=== PATIENT | female | born 1960 | race Caucasian/White ===

== ENCOUNTER 2017-06-01 17:23 | Emergency (ER) | payer BC ==
[~2017-06-01] VITALS: Ht 165.1 cm; Wt 54.4 kg
--- OUTSIDE RECORDS SUMMARY | ~2017-06-01 | XMS | Encounter Summary ---
Demographics + + + | Address | [address] | | | [place] [address] | + + + | Home Phone | | + + + | Preferred Language | Unknown | + + + | Marital Status | | + + + | Pentecostal Affiliation | Unknown | + + + | Race | Unknown | + + + | Ethnic Group | Unknown | + + + Author + + + | Author | [facility] | | | and [place] | + + + | Organization | [facility] | | | and [...] + + + + + | James Verdzuco | ECON | [address] | | | | | [place] [address] | | + + + + + | Josie Sparks | ECON | Unknown | | + + + + + Care Team Providers + +------+ + | Care Learning Center Coordinator Name | Role | Phone | + +------+ + | Antonio De Leon MD | PCP | | + +------+ + Reason for Visit +--------+ + | Reason | Comments | +--------+ + | Pain | | +--------+ + Encounter Details +--------+ + + + + | Date | Type | Department | Care Team | Description | +--------+ + + + + | 03/15/ | Clinical | [facility] | Max Dalton MD | Low back pain with | | 2018 | Support | [facility] | [address] | sciatica, sciatica | | | | CLINIC [address] | [place], [place] | laterality | | | | [address] [place] [place], | [address] | unspecified, | | | | [place] [address] | | unspecified back | | | | [phone] | | pain laterality, | | | | | | unspecified | | | | | | chronicity (Primary | | | | | | Dx) | +--------+ + + + + Social History + + [...] | | | + +---+---+---+ + + + | Sex Assigned at [...] | Max Dalton MD | | | 2017 | Visit | | [address] | | | | | | [place] | | | | | | [address] | | | | | | | | +--------+---------+ + + + as of this encounter Visit Diagnoses + + | Diagnosis | + + | Low back pain with sciatica, sciatica laterality unspecified, unspecified back pain | | laterality, unspecified chronicity - Primary | + + Administered Medications + +--------+ +-------+------+ + | Medication Order | MAR | Action | Dose | Rate | Site | | | Action | Date | | | | + +--------+ +-------+------+ + | ketorolac (TORADOL) injection | Given | | 60 mg | | Ventrogl | | 60 mg 60 mg, Intramuscular, | | 8 13:50 | | | uteal-Ri | | ONCE, 03/15/17 at 1415, For 1 | | PST | | | ght | | dose | | | | | | + +--------+ +-------+------+ + +---+---+ | | | +---+---+ in this encounter"
--- OUTSIDE RECORDS SUMMARY | ~2017-06-01 | XMS | Encounter Summary ---
Demographics + + + | Address | [address] | | | [place] [address] | + + + | Home Phone | | + + + | Preferred Language | Unknown | + + + | Marital Status | | + + + | Bahai Affiliation | Unknown | + + + | Race | Unknown | + + + | Ethnic Group | Unknown | + + + Author + + + | Author | [facility] | | | and [place]yeana | + + + | Organization | [facility] | | [...] + + + | James Verduzco | ECON | [address] | | | | | [place] [address] | | + + + + + | Josie Sparks | ECON | Unknown | | + + + + + Care Team Providers + +------+ + | Care Vice President Of Instruction Name | Role | Phone | + +------+ + | Antonio De Leon MD | PCP | | + +------+ + Reason for Visit + + + | Reason | Comments | + + + | Wound Check | | + + + Encounter Details +--------+ + + + + | Date | Type | Department | Care Team | Description | +--------+ + + + + | 03/28/ | Emergency | [facility] | Christofer Grant | Encounter for | | 2017 | | [facility] | [address] | post-traumatic wound | | | | CENTER [address] | [address] | check (Primary Dx) | | | | [place], [place] | [place] [address] | | | | | [address] | [phone] | | | | | [phone] | | | +--------+ + + + + Social [...] + + + as of this encounter Last Filed Vital Signs + + + + | Vital Sign | Reading | Time Taken | + + + + | Blood Pressure | 161/80 | 03/28/20171624 PST | + + + + | Pulse | 78 | 03/28/20171624 PST | + + + + | Temperature | 36.3 C (97.3 F) | 03/28/20171624 PST | + + + + | Respiratory Rate | 18 | 03/28/20171624 PST | + + + + | Oxygen Saturation | 100% | 03/28/20171624 PST | + + + + | Inhaled Oxygen | - | - | | Concentration | | | + + + + | Weight | 121 kg (266 lb 12.1 | 03/28/20171624 PST | | | oz) | | + + + + | Height | 165.1 cm (5' 5") | 03/28/20171624 PST | + + + + | Body Mass Index | 44.39 | 03/28/20171624 PST | + + + + in this encounter Discharge Instructions The following attachments cannot be sent through Care Everywhere.Wound Care (Citizen [place])in thi s encounter Medications at Time of Discharge + + +---------+---------+ + + | Medication | Sig. | Disp. | Refills | Start | End Date | | | | | | Date | | + + +---------+---------+ + + | albuterol (PROAIR | Inhale 2 puffs into | | | | | | HFA) 90 mcg/puff | the lungs every 6 | | | | | | inhaler | hours as needed for | | | | | | | Wheezing. | | | | | + + +---------+---------+ + + | amLODIPine | Take 10 mg by mouth | | | | | | (NORVASC) 10 MG | Daily. | | | | | | tablet | | | | | | + + +---------+---------+ + + | ascorbic acid | Take 1,000 mg by | | | | | | (VITAMIN C) 500 mg | mouth Daily. | | | | | | tablet | | | | | | + + +---------+---------+ + + | azelastine | 2 sprays by Nasal | | | | | | (ASTELIN) 0.1% nasal | route 2 times daily. | | | | | | spray | Use in each nostril | | | | | | | as directed. | | | | | + + +---------+---------+ + + | busPIRone (BUSPAR) | | | 1 | 02/17/20 | | | 10 MG tablet | | | | 17 | | + + +---------+---------+ + + | calcium-vitamin D | Take 3 tablets by | | | | | | (OSCAL) 500 mg-200 | mouth Daily. | | | | | | units per tablet | | | | | | + + +---------+---------+ + + | Cetirizine HCl | Take by mouth. | | | 08/11/19 | | | (ZYRTEC ALLERGY) 10 | | | | 15 | | | MG liqui-gel | | | | | | + + +---------+---------+ + + | cholecalciferol | Take by mouth. | | | 06/09/19 | | | (VITAMIN D-3) 1,000 | | | | 16 | | | units capsule | | | | | | + + +---------+---------+ + + | cloNIDine | Take by mouth. | | | 08/11/19 | | | (CATAPRES) 0.3 MG | | | | 15 | | | tablet | | | | | | + + +---------+---------+ + + | cyanocobalamin | Take 500 mcg by | | | | | | (VITAMIN B-12) 500 | mouth Daily. | | | | | | mcg tablet | | | | | | + + +---------+---------+ + + | EPINEPHrine | Injection; Use as | | | 08/11/19 | | | auto-injector | directed. | | | 15 | | | (EPIPEN 2-LA) 0.3 | | | | | | | mg/0.3 mL injection | | | | | | + + +---------+---------+ + + | ergocalciferol | Take 50,000 Units by | | | | | | (VITAMIN D-2) 50,000 | mouth 2 times | | | | | | units capsule | daily. | | | | | + + +---------+---------+ + + | ferrous sulfate | Take 325 mg by mouth | | | | | | 325 mg tablet | 2 times daily (with | | | | | | | breakfast & | | | | | | | dinner). | | | | | + + +---------+---------+ + + | fexofenadine | Take 180 mg by mouth | | | | | | (JUDAH ALLERGY) | as needed. | | | | | | 180 mg tablet | | | | | | + + +---------+---------+ + + | | Take by mouth. | | | 08/17/19 | | | fluticasone-salmeter | | | | 15 | | | ol (ADVAIR DISKUS) | | | | | | | 100-50 mcg/puff | | | | | | | diskus inhaler | | | | | | + + +---------+---------+ + + | | Inhale 2 puffs into | | | | | | fluticasone-salmeter | the lungs 2 times | | | | | | ol (ADVAIR HFA) | daily. | | | | | | 230-21 MCG/ACT | | | | | | | inhaler | | | | | | + + +---------+---------+ + + | gabapentin | Take 600 mg by mouth | | | | | | (NEURONTIN) 600 MG | 3 times daily. | | | | | | tablet | | | | | | + + +---------+---------+ + + | | Take 25 mg by mouth | | | | | | hydrochlorothiazide | Daily. | | | | | | 25 mg tablet | | | | | | + + +---------+---------+ + + | lansoprazole | Take 15 mg by mouth | | | | | | (PREVACID) [address] | Daily. | | | | | | capsule | | | | | | + + +---------+---------+ + + | lisinopril | Take 40 mg by mouth | | | | | | (PRINIVIL, ZESTRIL) | Daily. | | | | | | 20 mg tablet | | | | | | + + +---------+---------+ + + | lovastatin | Take 20 mg by mouth | | | | | | (MEVACOR) 20 mg | nightly. | | | | | | tablet | | | | | | + + +---------+---------+ + + | magnesium oxide | Take 400 mg by mouth | | | | | | (MAG-OX) 400 mg | Daily. | | | | | | tablet | | | | | | + + +---------+---------+ + + | montelukast | Take 10 mg by mouth | | | | | | (SINGULAIR) 10 mg | nightly. | | | | | | tablet | | | | | | + + +---------+---------+ + + | naratriptan | Take by mouth. | | | 11/07/19 | | | (AMERGE) 2.5 mg | | | | 17 | | | tablet | | | | | | + + +---------+---------+ + + | ondansetron | | | 3 | 01/24/20 | | | (ZOFRAN ODT) 4 mg | | | | 17 | | | disintegrating | | | | | | | tablet | | | | | | + + +---------+---------+ + + | oxyCODONE | Take 15 mg by mouth | | | | | | (ROXICODONE) 15 mg | every 8 hours as | | | | | | immediate release | needed. | | | | | | tablet | | | | | | + + +---------+---------+ + + | Poloxamer-Xylitol | | | 0 | //20 | | | (PCCA LOXASPERSE | | | | 17 | | | BASE) POWD | | | | | | + + +---------+---------+ + + | Probiotic Product | Take 2 capsules by | | | | | | (PROBIOTIC-10) CAPS | mouth. | | | | | + + +---------+---------+ + + | spironolactone | | | 3 | 12/30/20 | | | (ALDACTONE) 25 mg | | | | 17 | | | tablet | | | | | | + + +---------+---------+ + + | venlafaxine | Take by mouth. | | | 03/16/19 | | | (EFFEXOR XR) 75 mg | | | | 16 | | | 24 hr capsule | | | | | | + + +---------+---------+ + + | | Take 1 capsule by | 112 | 0 | 03/25/19 | | | butalbital-acetamino | mouth 4 times daily | capsule | | 18 | 8 | | phen-caffeine | as needed for | | | | | | (FIORICET) 50-300-40 | Headaches. | | | | | | mg per | | | | | | | capsuleIndications: | | | | | | | Migraine without | | | | | | | aura and without | | | | | | | status migrainosus, | | | | | | | not intractable | | | | | | + + +---------+---------+ + + | carisoprodol | Take 1 tablet by | 90 | 0 | 03/19/19 | | | (SOMA) 350 mg | mouth 3 times daily | tablet | | 18 | 8 | | tabletIndications: | as needed for Muscle | | | | | | Chronic bilateral | spasms. | | | | | | low back pain | | | | | | | without sciatica, | | | | | | | Strain of neck | | | | | | | muscle, subsequent | | | | | | | encounter | | | | | | + + +---------+---------+ + + | ketorolac | TAKE 1 TABLET BY | 30 | 2 | 03/19/19 | | | (TORADOL) 10 MG | MOUTH THREE TIMES | tablet | | 18 | 8 | | tabletIndications: | DAILY NEEDED FOR | | | | | | Chronic pain | PAIN | | | | | | syndrome | | | | | | + + +---------+---------+ + + | rizatriptan | DISSOLVE 1 TABLET BY | 12 | 1 | 01/19/20 | | | (MAXALT-CHARGE ENTRY SPECIALIST) 10 mg | MOUTH AT ONSET OF | tablet | | 17 | 8 | | disintegrating | HEADACHE AND CAN | | | | | | tablet | REPEAT IN 45 | | | | | | | MINUTES; UP TO 2 PER | | | | | | | DAY. | | | | | + + +---------+---------+ + + as of this encounter Plan of Treatment +--------+---------+ + + + | Date | Type | Specialty | Care Team | Description | +--------+---------+ + + + | 09/02/ | Office | Neurology | Max Dalton MD | | | 2018 | Visit | | [address] | | | | | | [place] | | | | | | [address] | | | | | | | | +--------+---------+ + + + + +--------+ + + | Name | Priori | Associated Diagnoses | Date/Time | | | ty | | | + +--------+ + + | ED INFORMATION EXCHANGE | Routin | | 03/28/2017 1619 PST | | | e | | | + +--------+ + + as of this encounter Visit Diagnoses + + | Diagnosis | + + | Encounter for post-traumatic wound check - Primary | + + | Encounter for other specified aftercare | + + Administered Medications + +--------+ + +------+------+ | Medication Order | MAR | Action | Dose | Rate | Site | | | Action | Date | | | | + +--------+ + +------+------+ | bacitracin topical ointment | Given | 03/28/2017 | 1 | | | | Topical, ONCE, [facility] 03/28/17 at | | 17:36 | Applicat | | | | 1745, For 1 dose | | PST | ion | | | + +--------+ + +------+------+ +---+---+ | | | +---+---+ in this encounter
--- OUTSIDE RECORDS SUMMARY | ~2017-06-01 | XMS | Clinical Summary ---
Demographics + + + | Address | [address] | | | [place] [address] | + + + | Home Phone | | + + + | Preferred Language | Unknown | + + + | Marital Status | | + + + | Sikhism Affiliation | Unknown | + + + | Race | Unknown | + + + | Ethnic Group | Unknown | + + + Author + + + | Author | [facility] | | | and [place] | + + + | Organization | [facility] | | | and [...] | James Verduzco | SUSAN | [address] | | | | | [place] [address] | | + + + + + | Josie Sparks | SUSAN | Unknown | | + + + + + Care Team Providers + +------+ + | Care Fire Control Officer Name | Role | Phone | + +------+ + | Antonio De Leon MD | PP | | + +------+ + Allergies + + + + + + | Active Allergy | Reactions | Severity | Noted | Comments | | | | | Date | | + + + + + + | Ciprofloxacin | Other (See Comments) | | 01/16/20 | Severe muscle | | | | | 12 | spasms | + + + + + + | Clarithromycin | | | | Other reaction(s): | | | | | | | | | | | | Shock/Unconsciousnes | | | | | | s | + + + + + + | Codeine | Rash | Low | 01/16/20 | | | | | | 12 | | + + + + + + | Morphine | Rash | Low | 01/16/20 | | | | | | 12 | | + + + + + + | Povidone Iodine | | | 01/15/ | | | | | | 12 | | + + + + + + Current Medications + + +---------+---------+------+------+-------+ | Prescription | Sig. | Disp. | Refills | Star | End | Statu | | | | | | t | Date | s | | | | | | Date | | | + + +---------+---------+------+------+-------+ | | Take 25 mg by mouth | | | | | Activ | | hydrochlorothiazide | Daily. | | | | | e | | 25 mg tablet | | | | | | | + + +---------+---------+------+------+-------+ | fexofenadine | Take 180 mg by mouth | | | | | Activ | | (JUDAH ALLERGY) | as needed. | | | | | e | | 180 mg tablet | | | | | | | + + +---------+---------+------+------+-------+ | oxyCODONE | Take 15 mg by mouth | | | | | Activ | | (ROXICODONE) 15 mg | every 8 hours as | | | | | e | | immediate release | needed. | | | | | | | tablet | | | | | | | + + +---------+---------+------+------+-------+ | lansoprazole | Take 15 mg by mouth | | | | | Activ | | (PREVACID) [address] | Daily. | | | | | e | | capsule | | | | | | | + + +---------+---------+------+------+-------+ | montelukast | Take 10 mg by mouth | | | | | Activ | | (SINGULAIR) 10 mg | nightly. | | | | | e | | tablet | | | | | | | + + +---------+---------+------+------+-------+ | spironolactone | | | 3 | 12/3 | | Activ | | (ALDACTONE) 25 mg | | | | 0/20 | | e | | tablet | | | | 17 | | | + + +---------+---------+------+------+-------+ | Cetirizine HCl | Take by mouth. | | | 06/2 | | Activ | | (ZYRTEC ALLERGY) 10 | | | | 3/20 | | e | | MG liqui-gel | | | | 15 | | | + + +---------+---------+------+------+-------+ | albuterol (PROAIR | Inhale 2 puffs into | | | | | Activ | | HFA) 90 mcg/puff | the lungs every 6 | | | | | e | | inhaler | hours as needed for | | | | | | | | Wheezing. | | | | | | + + +---------+---------+------+------+-------+ | | Inhale 2 puffs into | | | | | Activ | | fluticasone-salmeter | the lungs 2 times | | | | | e | | ol (ADVAIR HFA) | daily. | | | | | | | 230-21 MCG/ACT | | | | | | | | inhaler | | | | | | | + + +---------+---------+------+------+-------+ | lisinopril | Take 40 mg by mouth | | | | | Activ | | (PRINIVIL, ZESTRIL) | Daily. | | | | | e | | 20 mg tablet | | | | | | | + + +---------+---------+------+------+-------+ | amLODIPine | Take 10 mg by mouth | | | | | Activ | | (NORVASC) 10 MG | Daily. | | | | | e | | tablet | | | | | | | + + +---------+---------+------+------+-------+ | gabapentin | Take 600 mg by mouth | | | | | Activ | | (NEURONTIN) 600 MG | 3 times daily. | | | | | e | | tablet | | | | | | | + + +---------+---------+------+------+-------+ | azelastine | 2 sprays by Nasal | | | | | Activ | | (ASTELIN) 0.1% nasal | route 2 times daily. | | | | | e | | spray | Use in each nostril | | | | | | | | as directed. | | | | | | + + +---------+---------+------+------+-------+ | ferrous sulfate | Take 325 mg by mouth | | | | | Activ | | 325 mg tablet | 2 times daily (with | | | | | e | | | breakfast & | | | | | | | | dinner). | | | | | | + + +---------+---------+------+------+-------+ | ergocalciferol | Take 50,000 Units by | | | | | Activ | | (VITAMIN D-2) 50,000 | mouth 2 times | | | | | e | | units capsule | daily. | | | | | | + + +---------+---------+------+------+-------+ | calcium-vitamin D | Take 3 tablets by | | | | | Activ | | (OSCAL) 500 mg-200 | mouth Daily. | | | | | e | | units per tablet | | | | | | | + + +---------+---------+------+------+-------+ | cyanocobalamin | Take 500 mcg by | | | | | Activ | | (VITAMIN B-12) 500 | mouth Daily. | | | | | e | | mcg tablet | | | | | | | + + +---------+---------+------+------+-------+ | magnesium oxide | Take 400 mg by mouth | | | | | Activ | | (MAG-OX) 400 mg | Daily. | | | | | e | | tablet | | | | | | | + + +---------+---------+------+------+-------+ | Probiotic Product | Take 2 capsules by | | | | | Activ | | (PROBIOTIC-10) CAPS | mouth. | | | | | e | + + +---------+---------+------+------+-------+ | lovastatin | Take 20 mg by mouth | | | | | Activ | | (MEVACOR) 20 mg | nightly. | | | | | e | | tablet | | | | | | | + + +---------+---------+------+------+-------+ | ascorbic acid | Take 1,000 mg by | | | | | Activ | | (VITAMIN C) 500 mg | mouth Daily. | | | | | e | | tablet | | | | | | | + + +---------+---------+------+------+-------+ | EPINEPHrine | Injection; Use as | | | 06/2 | | Activ | | auto-injector | directed. | | | 3/20 | | e | | (EPIPEN 2-LA) 0.3 | | | | 15 | | | | mg/0.3 mL injection | | | | | | | + + +---------+---------+------+------+-------+ | ondansetron | | | 3 | 12/0 | | Activ | | (ZOFRAN ODT) 4 mg | | | | 6 | | e | | disintegrating | | | | 17 | | | | tablet | | | | | | | + + +---------+---------+------+------+-------+ | Poloxamer-Xylitol | | | 0 | 12/20 | | Activ | | (PCCA LOXASPERSE | | | | 03/09 | | e | | BASE) ZACHARY | | | | 17 | | | + + +---------+---------+------+------+-------+ | | Take by mouth. | | | 07/20 | | Activ | | fluticasone-salmeter | | | | 11/07 | | e | | ol (ADVAIR DISKUS) | | | | 15 | | | | 100-50 mcg/puff | | | | | | | | diskus inhaler | | | | | | | + + +---------+---------+------+------+-------+ | busPIRone (BUSPAR) | | | 1 | 12/3 | | Activ | | 10 MG tablet | | | | 0/20 | | e | | | | | | 17 | | | + + +---------+---------+------+------+-------+ | cloNIDine | Take by mouth. | | | 07/20 | | Activ | | (CATAPRES) 0.3 MG | | | | 3/20 | | e | | tablet | | | | 15 | | | + + +---------+---------+------+------+-------+ | venlafaxine | Take by mouth. | | | 02/19 | | Activ | | (EFFEXOR XR) 75 mg | | | | 7/20 | | e | | 24 hr capsule | | | | 16 | | | + + +---------+---------+------+------+-------+ | naratriptan | Take by mouth. | | | 10/19 | | Activ | | (AMERGE) 2.5 mg | | | | 20 | | e | | tablet | | | | 17 | | | + + +---------+---------+------+------+-------+ | cholecalciferol | Take by mouth. | | | 05/20 | | Activ | | (VITAMIN D-3) 1,000 | | | | 20 | | e | | units capsule | | | | 16 | | | + + +---------+---------+------+------+-------+ | rizatriptan | Take 1 tablet by | 12 | 3 | 02/2 | | Activ | | (MAXALT-METAL INSPECTOR) 10 mg | mouth as needed for | tablet | | 20 | | e | | disintegrating | Migraine. May repeat | | | 18 | | | | tabletIndications: | in 2 hours if | | | | | | | Migraine without | needed | | | | | | | aura and without | | | | | | | | status migrainosus, | | | | | | | | not intractable | | | | | | | + + +---------+---------+------+------+-------+ | gabapentin | Take 3 capsules by | 180 | 1 | 02/2 | | Activ | | (NEURONTIN) 100 mg | mouth 2 times daily. | capsule | | 10/07 | | e | | capsuleIndications: | Increase current | | | 18 | | | | Neuropathy | dose slowly by 100 | | | | | | | | mg every 7 days | | | | | | | | until taking a total | | | | | | | | of 2400 mg daily | | | | | | + + +---------+---------+------+------+-------+ | ketorolac | TAKE 1 TABLET BY | 30 | 2 | 03/1 | | Activ | | (TORADOL) 10 MG | MOUTH THREE TIMES | tablet | | 3/20 | | e | | tabletIndications: | DAILY NEEDED FOR | | | 18 | | | | Chronic pain | PAIN | | | | | | | syndrome | | | | | | | + + +---------+---------+------+------+-------+ | | Take 1 capsule by | 112 | 0 | 04/0 | 04/3 | Activ | | butalbital-acetamino | mouth 4 times daily | capsule | | 2/20 | 0/20 | e | | phen-caffeine | as needed for | | | 18 | 18 | | | (FIORICET) 50-300-40 | Headaches for up to | | | | | | | mg per | 28 days. | | | | | | | capsuleIndications: | | | | | | | | Migraine without | | | | | | | | aura and without | | | | | | | | status migrainosus, | | | | | | | | not intractable | | | | | | | + + +---------+---------+------+------+-------+ | carisoprodol | Take 1 tablet by | 84 | 0 | 02/2 | 03/2 | Expir | | (SOMA) 350 mg | mouth 3 times daily | tablet | | 10/07 | 8 | ed | | tabletIndications: | as needed for Muscle | | | 18 | 18 | | | Chronic bilateral | spasms for up to 28 | | | | | | | low back pain | days. | | | | | | | without sciatica, | | | | | | | | Strain of neck | | | | | | | | muscle, subsequent | | | | | | | | encounter | | | | | | | + + +---------+---------+------+------+-------+ | | Take 1 capsule by | 112 | 0 | 03/0 | 03/3 | Disco | | butalbital-acetamino | mouth 4 times daily | capsule | | 5/20 | 0/20 | ntinu | | phen-caffeine | as needed for | | | 18 | 18 | ed | | (FIORICET) 50-300-40 | Headaches for up to | | | | | | | mg per | 28 days. | | | | | | | capsuleIndications: | | | | | | | | Migraine without | | | | | | | | aura and without | | | | | | | | status migrainosus, | | | | | | | | not intractable | | | | | | | + + +---------+---------+------+------+-------+ Active Problems + + + | Problem | Noted Date | + + + | Migraine without aura and without status migrainosus, not | 03/25/2017 | | intractable | | + + + | Carpal tunnel syndrome | 08/03/2016 | + + + | Cervical strain | 08/03/2016 | + + + | Strain of thoracic region | 08/03/2016 | + + + | Asthma | 06/09/2015 | + + + | Chronic pain | 06/09/2015 | + + + | Gastroesophageal reflux disease | 06/09/2015 | + + + | Idiopathic avascular necrosis | 06/09/2015 | + + + | Osteoarthrosis | 06/09/2015 | + + + | Osteopenia | 06/09/2015 | + + + | Postmenopausal | 06/09/2015 | + + + | Hypertension | 03/16/2015 | + + + | Low back pain | 01/16/2012 | + + + | Right lumbar radiculitis - appears to affect the right L5 nerve | 01/16/2012 | | root | | + + + | Right knee pain - the patient has a history of several surgeries | 01/16/2012 | | on the knee and prior ACL/PCL tears | | + + + | Sacroiliitis - currently worse on the left but present | 01/16/2012 | | bilaterally | | + + + Encounters +--------+ + + + + | Date | Type | Specialty | Care Team | Description | +--------+ + + + + | 05/17/ | Refill | | French Daly | Medication Refill | | 2017 | | | RICHARD Johnson | | +--------+ + + + + | 05/07/ | Telephone | | French Daly | Other (please advise | | 2017 | | | RICHARD Johnson | ) | +--------+ + + + + | 04/30/ | Refill | | Max Dalton MD | Medication Refill | | 2017 | | | | | +--------+ + + + + | 04/22/ | Refill | | Max Dalton MD | Medication Refill | | 2017 | | | | | +--------+ + + + + | 04/17/ | Office | | French Daly | Neuropathy (Primary | | 2018 | Visit | | RICHARD Johnson | Dx); Right lumbar | | | | | | radiculitis - | | | | | | appears to affect | | | | | | the right L5 nerve | | | | | | root; Chronic | | | | | | bilateral low back | | | | | | pain without | | | | | | sciatica; Migraine | | | | | | without aura and | | | | | | without status | | | | | | migrainosus, not | | | | | | intractable; Strain | | | | | | of thoracic region, | | | | | | subsequent | | | | | | encounter; Strain of | | | | | | neck muscle, | | | | | | subsequent | | | | | | encounter; Chronic | | | | | | pain syndrome | +--------+ + + + + | 04/12/ | Telephone | | French Daly | Medication Related | | 2017 | | | RICHARD Johnson | | +--------+ + + + + | 04/09/ | Refill | | French Daly | Medication Refill | | 2017 | | | RICHARD Johnson | (refill request) | +--------+ + + + + | 03/28/ | Emergency | | Christofer Grant | Encounter for | | 2017 | | | MD Geovani | post-traumatic wound | | | | | | check (Primary Dx) | +--------+ + + + + | 03/28/ | Procedure | | Max Dalton MD | Bilateral carpal | | 2017 | visit | | | tunnel syndrome | | | | | | (Primary Dx) | +--------+ + + + + | 03/25/ | Emergency | | Meghan Gutierrez, | 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 finger | | | | | | without foreign body | | | | | | without damage to | | | | | | nail, initial | | | | | | encounter (Primary | | | | | | Dx) | +--------+ + + + + | 03/25/ | Refill | | French Daly | Medication Refill | | 2017 | | | RICHARD Johnson | | +--------+ + + + + | 03/19/ | Office | | French Daly | Chronic bilateral | | 2018 | Visit | | RICHARD Johnson | low back pain | | | | | | without sciatica | | | | | | (Primary Dx); Right | | | | | | lumbar radiculitis - | | | | | | appears to affect | | | | | | the right L5 nerve | | | | | | root; Chronic | | | | | | migraine; Strain of | | | | | | neck muscle, | | | | | | subsequent | | | | | | encounter; Chronic | | | | | | pain syndrome | +--------+ + + + + | 03/19/ | Refill | | French Daly | Medication Refill | | 2017 | | | RICHARD Johnson | (refill request) | +--------+ + + + + | 03/19/ | Telephone | | French Daly | Other (please | 2017 | | | RICHARD Johnson | advise) | +--------+ + + + + | 03/19/ | Telephone | | French Daly | Other (Please | 2017 | | | RICHARD Johnson | Advise) | +--------+ + + + 03/15/ | Clinical | | Max Dalton MD | Low back pain with | 2017 | Support | | | sciatica, sciatica | | | | | | laterality | | | | | | unspecified, | | | | | | unspecified back | | | | | | pain laterality, | | | | | | unspecified | | | | | | chronicity (Primary | | | | | | Dx) | +--------+ + + + + | 03/15/ | Telephone | | French Daly | Other (Toradol Inj) | | 2017 | | | RICHARD Johnson | | +--------+ + + + + | 03/15/ | Telephone | | Max Dalton MD | Medication | | 2017 | | | | Management (toradol | | | | | | shot) | +--------+ + + + + from Last 3 Months Family History + + +------+ + | Medical History | Relation | Name | Comments | + + +------+ + | Other (see comment) | Father | | | + + +------+ + | Dementia | Mother | | | + + +------+ + | Other (see comment) | Mother | | | + + +------+ + + +------+ + + | Relation | Name | Status | Comments | + +------+ + + | Father | | | | + +------+ + + | Mother | | | | + +------+ + + Social History + + + [...] on file | | + + + Last Filed Vital Signs + + + + | Vital Sign | Reading | Time Taken | + + + + | Blood Pressure | 138/88 | 04/17/20171622 PST | + + + + | Pulse | 87 | 04/17/20171622 PST | + + + + | Temperature | 36.3 C (97.3 F) | 03/28/20171624 PST | + + + + | Respiratory Rate | 18 | 04/17/20171622 PST | + + + + | Oxygen Saturation | 96% | 04/17/20171622 PST | + + + + | Inhaled Oxygen | - | - | | Concentration | | | + + + + | Weight | 54.9 kg (121 lb) | 04/17/20171622 PST | + + + + | Height | 165.1 cm (5' 5") | 04/17/20171622 PST | + + + + | Body Mass Index | 20.14 | 04/17/20171622 PST | + + + + Plan of Treatment +--------+---------+ + + + | Date | Type | Specialty | Care Team | Description | +--------+---------+ + + + | 09/02/ | Office | | Max Dalton MD | | | 2018 | Visit | | [address] | | | | | | [place] | | | | | | [address] | | | | | | | | +--------+---------+ + + + + + + + + | Health Maintenance | Due Date | Last Done | Comments | + + + + + | Hepatitis C | | | | | Screening | 3 | | | + + + + + | Vaccine: | | | | | Dtap/Tdap/Td (1 - | 2 | | | | Tdap) | | | | + + + + + | Vaccine: | | | | | Pneumococcal 19-64 | 2 | | | | (PPSV23 only) Medium | | | | | Risk (1 of 1 - | | | | | PPSV23) | | | | + + + + + | CERVICAL CANCER | | | | | SCREENING (PAP EVERY | 4 | | | | 3 YEARS 21-64 ) | | | | + + + + + | BREAST CANCER | | | | | SCREENING (MAMM Q2 | 3 | | | | YEARS 50-74) | | | | + + + + + | COLON CANCER | | | | | SCREENING | 3 | | | | (COLONOSCOPY EVERY | | | | | 10 YEARS 50-75) | | | | + + + + + | Vaccine: Influenza | | | | | (Season Ended) | 8 | | | + + + + + Procedures + +--------+ + + + | Procedure Name | Priori | Date/Time | Associated Diagnosis | Comments | | | ty | | | | + +--------+ + + + | EMG STUDY | Routin | 03/28/2017 | Bilateral carpal | Results for this | | | e | 1415 PST | tunnel syndrome | procedure are in the | | | | | | results section. | + +--------+ + + + from Last 3 Months Results EMG Study- Upper Extremity (03/28/2017 1415) + + | Narrative | + + | Max Dalton MD 03/28/2017 15:12 See scanned chart: NCS/EMG of the upper | | extremities demonstrated mild bilateral median nerve entrapment across the wrists | + + + + | Procedure Note | + + | Max Dalton MD - 03/28/2017 1415 PST See scanned chart: NCS/EMG of the upper | | extremities demonstrated mild bilateral median nerve entrapment across the wrists | + + from Last 3 Months Insurance +---------+--------+ +------+ +---------+ | Payer | Benefi | Subscriber | Type | Phone | Address | | | t Plan | ID | | | | | | / | | | | | | | Group | | | | | +---------+--------+ +------+ +---------+ | BCBS | BCBS | xxxxxxxxxxx | PPO | | | | | OUT OF | x | | | | | | STATE | | | | | | | PPO | | | | | +---------+--------+ +------+ +---------+ | [place] [id number] | [place] | [phone] | [phone] | [phone] | | +---------+--------+ +------+ +---------+ + +--------+ +--------+ + + | Guarantor Name | Accoun | Relation to | Date | Phone | Billing Address | | | t Type | Patient | of | | | | | | | | | | + +--------+ +--------+ + + | CHAI VERDUZCO | Person | Self [birth year] | 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
--- OUTSIDE RECORDS SUMMARY | ~2017-06-01 | XMS | Encounter Summary ---
Demographics + + + | Address | [address] | | | [place] [address] | + + + | Home Phone | | + + + | Preferred Language | Unknown | + + + | Marital Status | | + + + | Mu-Ism Affiliation | Unknown | + + + | Race | Unknown | + + + | Ethnic Group | Unknown | + + + Author + + + | Author | [facility] | | | and [place]ye[place] | + + + | Organization | [facility] | | | and [...] | | | | | [place] [address] | | + + + + + | Josie Sparks | ECON | Unknown | | + + + + + Care Team Providers + +------+ + | Care 3Rd Grade Reading Teacher Name | Role | Phone | + +------+ + | Antonio De Leon MD | PCP | | + +------+ + Reason for Visit +--------+ + | Reason | Comments | +--------+ + | Other | Toradol Inj | +--------+ + Encounter Details +--------+ + + + + | Date | Type | Department | Care Team | Description | +--------+ + + + + | 03/15/ | Telephone | [facility] | French Daly | Other (Toradol Inj) | | 2018 | | [facility] | RICHARD Johnson [address] | | | | | [address] | [address] | | | | | [address] [place], | [place] [address] | | | | | [place] [address] | [phone] | | | | | [phone] | | | +--------+ + + + [...] [place] | | | | | | [address] | | | | | | | | +--------+---------+ + + + as of this encounter Visit Diagnoses Not on filein this encounter"
--- OUTSIDE RECORDS SUMMARY | ~2017-06-01 | XMS | Encounter Summary ---
Demographics + + + | Address | [address] | | | [place] [address] | + + + | Home Phone | | + + + | Preferred Language | Unknown | + + + | Marital Status | | + + + | Restorationist Affiliation | Unknown | + + + | Race | Unknown | + + + | Ethnic Group | Unknown | + + + Author + + + | Author | [facility] | | | and [place]yeana | + + + | Organization | [facility] | | | and [...] | | | | | [place] [address] | | + + + + + | Josie Sparks | ECON | Unknown | | + + + + + Care Team Providers + +------+ + | Care It Operations Manager Name | Role | Phone | + +------+ + | Antonio De Leon MD | PCP | | + +------+ + Reason for Visit + + + | Reason | Comments | + + + | Medication Refill | | + + + Encounter Details +--------+--------+ + + + | Date | Type | Department | Care Team | Description | +--------+--------+ + + + | 05/17/ | Refill | [facility] | [facility] | Medication Refill | | 2017 | | [facility] | [address] | | | | | [address] | [address] | | | | | [address] [place], | [place] [address] | | | | | [place] [address] | [phone] | | | | | [phone] | | | +--------+--------+ + + + [...] | 2018 | Visit | | [address] | | | | | | [place] | | | | | | [address] | | | | | | | | +--------+---------+ + + + as of this encounter Visit Diagnoses + + | Diagnosis | + + | Migraine without aura and without status migrainosus, not intractable | + + | Migraine without aura, without mention of intractable migraine without mention of | | status migrainosus | + +"
--- OUTSIDE RECORDS SUMMARY | ~2017-06-01 | XMS | Encounter Summary ---
Demographics + + + | Address | [address] | | | [place] [address] | + + + | Home Phone | | + + + | Preferred Language | Unknown | + + + | Marital Status | | + + + | Christianity Affiliation | Unknown | + + + | Race | Unknown | + + + | Ethnic Group | Unknown | + + + Author + + + | Author | [facility] | | | and [place]yeana | + + + | Organization | [facility] | | | [...] | | | | | [place] [address] | | + + + + + | Josie Sparks | ECON | Unknown | | + + + + + Care Team Providers + +------+ + | Care Marketing Data Specialist Name | Role | Phone | + [...] | [address] [place], [place] | [place] [address] | | | | | [address] | [phone] | | | | | [phone] | | | +--------+ + + + [...] cannot be sent through Care Everywhere.Wound Care ([place])in thi s encounter Medications at Time of [...] | 1 | 01/19/20 | | | (MAXALT-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
--- OUTSIDE RECORDS SUMMARY | ~2017-06-01 | XMS | Encounter Summary ---
Demographics + + + | Address | [address] | | | [place] [address] | + + + | Home Phone | | + + + | Preferred Language | Unknown | + + + | Marital Status | | + + + | Congregation Affiliation | Unknown | + + + | Race | Unknown | + + + | Ethnic Group | Unknown | + + + Author + + + | Author | [facility] | | | and [place]ye[place] | + + + | Organization | [facility] | | [...] | | | | | [place] [address] | | + + + + + | Josie Sparks | ECON | Unknown | | + + + + + Care Team Providers + +------+ + | Care Home Health Caregiver Name | Role | Phone | + [...] Medication Refill | | 2018 | | [facility] | RICHARD Johnson [address] | (refill request) | | | | [address] | [facility] [address] | | | | | [address] [place], | [facility] [place] [address] | | | | | [place] [address] | [phone] | | | | | [phone] | | | +--------+--------+ + + + [...] [place] | | | | | | [id number] | | | | | | | | +--------+---------+ + + + as of this encounter Visit Diagnoses Not on filein this encounter"
--- OUTSIDE RECORDS SUMMARY | ~2017-06-01 | XMS | Encounter Summary ---
Demographics + + + | Address | [address] | | | [place] [address] | + + + | Home Phone | | + + + | Preferred Language | Unknown | + + + | Marital Status | | + + + | Worship Affiliation | Unknown | + + + | Race | Unknown | + + + | Ethnic Group | Unknown | + + + Author + + + | Author | [facility] | | | and [place] | + + + | Organization | [facility] | | | and [place] | + [...] | | | | | [place] [address] | | + + + + + | Joise Sparks | ECON | Unknown | | + + + + + Care Team Providers + +------+ + | Care Audiology Doctor Name | Role | Phone | + [...] Description | +--------+--------+ + + + | 04/30/ | Refill | [facility] | Max Dalton MD | Medication Refill | | 2017 | | HOSPITAL [facility] | [address] | | | | | CLIN[address] | [place], [place] | | | | | [address] [place] [place], | [address] | | | | | [place] [address] | | | | | | [phone] | | | +--------+--------+ + + + [...] [place] | | | | | | [address] | | | | | | | | +--------+---------+ + + + as of this encounter Visit Diagnoses + + | Diagnosis | + + | Strain of thoracic region, subsequent encounter - Primary | + + | Chronic pain syndrome | + + | Strain of neck muscle, subsequent encounter | + + | Chronic bilateral low back pain without sciatica | + +"
--- OUTSIDE RECORDS SUMMARY | ~2017-06-01 | XMS | Encounter Summary ---
Demographics + + + | Address | [address] | | | [place] [address] | + + + | Home Phone | | + + + | Preferred Language | Unknown | + + + | Marital Status | | + + + | Buddhist Affiliation | Unknown | + + + | Race | Unknown | + + + | Ethnic Group | Unknown | + + + Author + + + | Author | [facility] | | | and [place] | + + + | Organization | [facility] | | | and [...] | | | | | [place] [address] | | + + + + + | Josie Sparks | ECON | Unknown | | + + + + + Care Team Providers + +------+ + | Care Plant Safety Engineer Name | Role | Phone | + [...] Medication Refill | | 2018 | | [facility] | [address] | (refill request) | | | | CLIN[address] | [facility] [address] | | | | | DR [address] [place], | [place] [address] | | | | | [place] [address] | [phone] | | | | | [phone] | | | +--------+--------+ + + + [...] [place] | | | | | | [id number] | | | | | | | | +--------+---------+ + + + as of this encounter Visit Diagnoses Not on filein this encounter"
--- OUTSIDE RECORDS SUMMARY | ~2017-06-01 | XMS | Encounter Summary ---
Demographics + + + | Address | [address] | | | [place] [address] | + + + | Home Phone | | + + + | Preferred Language | Unknown | + + + | Marital Status | | + + + | Restorationism Affiliation | Unknown | + + + | Race | Unknown | + + + | Ethnic Group | Unknown | + + + Author + + + | Author | [facility] | | | and [place] | + + + | Organization | [facility] | | [...] | | | | | [place] [address] | | + + + + + | Josie Sparks | ECON | Unknown | | + + + + + Care Team Providers + +------+ + | Care Tree Pruner Name | Role | Phone | + +------+ + | Antonio De Leon MD | PCP | | + +------+ + Reason for Visit + + + | Reason | Comments | + + + | Medication Related | | + + + Encounter Details +--------+ + + + + | Date | Type | Department | Care Team | Description | +--------+ + + + + | 04/12/ | Telephone | [facility] | French Daly | Medication Related | | 2018 | | HOSPITAL [facility] | [address] | | | | | [address] | [address] [facility] [address] [place] | | | | | [address] [place], | [place] [address] | | | | | [place] [address] | [phone] | | | | | [phone] | | | +--------+ + + + [...] [place] | | | | | | [address] | | | | | | | | +--------+---------+ + + + as of this encounter Visit Diagnoses + + | Diagnosis | + + | Chronic bilateral low back pain without sciatica | + + | Strain of neck muscle, subsequent encounter | + +"
--- OUTSIDE RECORDS SUMMARY | ~2017-06-01 | XMS | Encounter Summary ---
Demographics + + + | Address | [address] | | | [place] [address] | + + + | Home Phone | | + + + | Preferred Language | Unknown | + + + | Marital Status | | + + + | Restoration Affiliation | Unknown | + + + | Race | Unknown | + + + | Ethnic Group | Unknown | + + + Author + + + | Author | [facility] | | | and [place] | + + + | Organization | [facility] | | | [...] | | | | | [place] [address] | | + + + + + | Josie Sparks | ECON | Unknown | | + + + + + Care Team Providers + +------+ + | Care Aluminum Boats Assembler Name | Role | Phone | + +------+ + | Antonio De Leon MD | PCP | | + +------+ + Reason for Visit + + + | Reason | Comments | + + + | Finger Laceration | | + + + Encounter Details +--------+ + + + + | Date | Type | Department | Care Team | Description | +--------+ + + + + | 03/25/ | Emergency | [facility] | Meghan Gutierrez, | Laceration of right | | 2017 | | HOSPITAL [facility] | PLASTER MECHANIC [address] | middle finger | | | | CENTER [address] | [address] [place], [place] | without foreign body | | | | [place] | [address] | without damage to | | | | [address] | | abdi willis | | | | [phone] | | encounter (Primary | | | [...] + + + | Blood Pressure | 169/89 | 03/25/20171128 PST | + + + + | Pulse | 79 | 03/25/20171128 PST | + + + + | Temperature | 36.1 C (97 F) | 03/25/20171128 PST | + + + + | Respiratory Rate | 16 | 03/25/20171128 PST | + + + + | Oxygen Saturation | 99% | 03/25/20171128 PST | + + + + | Inhaled Oxygen | - | - | | Concentration | | | + + + + | Weight | 54.4 kg (120 lb) | 03/25/20171128 PST | + + + + | Height | 165.1 cm (5' 5") | 03/25/20171128 PST | + + + + | Body Mass Index | 19.97 | 03/25/20171128 PST | + + + + in this encounter Discharge Instructions The following attachments cannot be sent through Care Everywhere.Laceration, Extremity: Sut ure, Staple, or Tape (Syrian)in this encounter Medications at Time of Discharge + [...] busPIRone (BUSPAR) | | | 1 | 12/30/20 | | | 10 MG tablet | [...] | Poloxamer-Xylitol | | | 0 | 01/09/20 | | | (PCCA LOXASPERSE | | | | 17 | | | BASE) CARLOSD | | | | | | + + +---------+---------+ + + | Probiotic Product | Take 2 capsules by | | | | | | (PROBIOTIC-10) CAPS | mouth. | | | | | + + +---------+---------+ + + | spironolactone | | | 3 | 02/17/20 | | | (ALDACTONE) 25 mg | [...] + + | albuterol (PROAIR | Inhale into the | | | 08/11/19 | | | HFA) 90 mcg/puff | lungs. | | | 15 | 8 | | inhaler | | | | [...] | 1 | 01/19/20 | | | (MAXALT-SECTION GANG WORKER) 10 mg | MOUTH AT ONSET OF [...] [place] | | | | | | [id number] | | | | | | | | +--------+---------+ + + + + +--------+ + + | Name | Priori | Associated Diagnoses | Date/Time | | | ty | | | + +--------+ + + | ED INFORMATION EXCHANGE | Routin | | 03/25/2017 1111 PST | | | e | | | + +--------+ + + as of this encounter Visit Diagnoses + + | Diagnosis | + + | Laceration of right middle finger without foreign body without damage to nail, initial | | encounter - Primary | + + Administered Medications + +--------+ +-------+------+ + | Medication Order | MAR | Action | Dose | Rate | Site | | | Action | Date | | | | + +--------+ +-------+------+ + | ketorolac (TORADOL) injection | Given | 03/25/2017 | 60 mg | | Glut-Lef | | 60 mg 60 mg, Intramuscular, | | 13:01 | | | t | | ONCE, 03/25/17 at 1315, For 1 | | PST | | | | | dose | | | | | | + +--------+ +-------+------+ + +---+---+ | | | +---+---+ in this encounter
--- OUTSIDE RECORDS SUMMARY | ~2017-06-01 | XMS | Encounter Summary ---
Demographics + + + | Address | [address] | | | [place] [address] | + + + | Home Phone | | + + + | Preferred Language | Unknown | + + + | Marital Status | | + + + | Restorationism Affiliation | Unknown | + + + | Race | Unknown | + + + | Ethnic Group | Unknown | + + + Author + + + | Author | [facility] | | | and [place] | + + + | Organization | [facility] | | | [...] | | | | | [place] [address] | | + + + + + | Josie Sparks | ECON | Unknown | | + + + + + Care Team Providers + +------+ + | Care International Representative Name | Role | Phone | + [...] [address] [place], | [place] [address] | | | | | [place] [address] | [phone] | | | | | [phone] | | | +--------+--------+ + + + [...] [place] | | | | | | [address] | | | | | | | [...]
--- OUTSIDE RECORDS SUMMARY | ~2017-06-01 | XMS | Encounter Summary ---
Demographics + + + | Address | [address] | | | [place] [address] | + + + | Home Phone | | + + + | Preferred Language | Unknown | + + + | Marital Status | | + + + | Pentecostal Affiliation | Unknown | + + + | Race | Unknown | + + + | Ethnic Group | Unknown | + + + Author + + + | Author | [facility] | | | and [place] | + + + | Organization | [facility] | | | [...] | | | | | [place] [address] | | + + + + + | Josie Sparks | ECON | Unknown | | + + + + + Care Team Providers + +------+ + | Care Microbiology Manager Name | Role | Phone | [...] | 2017 | | HOSPITAL EMERG[facility]Y | EASEMENT MAN [address] | middle finger | | | | CENTER [address] | Drive [place], [place] | without foreign body | | | | [place] | [address] | without damage to | | | | [address] | | abdi willis | | | | [phone] | | encounter (Primary | | | [...] Everywhere.Laceration, Extremity: Sut ure, Staple, or Tape (Thai)in this encounter Medications at Time of Discharge [...] | 1 | 01/19/20 | | | (MAXALT-SPRAY PAINTER HELPER) 10 mg | MOUTH AT ONSET OF [...] [place] | | | | | | [id number] | | | | | | | [...]
--- OUTSIDE RECORDS SUMMARY | ~2017-06-01 | XMS | Encounter Summary ---
Demographics + + + | Address | [address] | | | [place] [address] | + + + | Home Phone | | + + + | Preferred Language | Unknown | + + + | Marital Status | | + + + | Amish Affiliation | Unknown | + + + | Race | Unknown | + + + | Ethnic Group | Unknown | + + + Author + + + | Author | [facility] | | | and [place] | + + + | Organization | [facility] | | | [...] | | | | | [place] [address] | | + + + + + | Josie Sparks | ECON | Unknown | | + + + + + Care Team Providers + +------+ + | Care Evp Global Product Leadership Name | Role | Phone | + [...] 2018 | | HOSPITAL NEUR[facility]Y | [address] | ) | | | | CLIN[address] | [address] | | | | | [address] [place] [place], | [place] [address] | | | | | [place] [address] | [phone] | | | | | [phone] | | | +--------+ + + + [...] [place] | | | | | | [address] | | | | | | | | +--------+---------+ + + + as of this encounter Visit Diagnoses Not on filein this encounter"
--- OUTSIDE RECORDS SUMMARY | ~2017-06-01 | XMS | Encounter Summary ---
Demographics + + + | Address | [address] | | | [place] [address] | + + + | Home Phone | | + + + | Preferred Language | Unknown | + + + | Marital Status | | + + + | Rastafari Affiliation | Unknown | + + + | Race | Unknown | + + + | Ethnic Group | Unknown | + + + Author + + + | Author | [facility] | | | and [place] | + + + | Organization | [facility] | | | and [...] | | | | | [place] [address] | | + + + + + | Josie Sparks | ECON | Unknown | | + + + + + Care Team Providers + +------+ + | Care Yeast Washer Name | Role | Phone | + [...] Description | +--------+--------+ + + + | 04/22/ | Refill | [facility] | Max Dalton MD | Medication Refill | | 2017 | | HOSPITAL [facility] | [address] | | | | | CLINIC [address] | [place], [place] | | | | | DR [place] [place], | [address] | | | | | [place] [address] | | | | | | [phone] | | | +--------+--------+ + + + [...] [place] | | | | | | [address] | | | | | | | [...]
--- OUTSIDE RECORDS SUMMARY | ~2017-06-01 | XMS | Encounter Summary ---
Demographics + + + | Address | [address] | | | [place] [address] | + + + | Home Phone | | + + + | Preferred Language | Unknown | + + + | Marital Status | | + + + | Jewish Affiliation | Unknown | + + + | Race | Unknown | + + + | Ethnic Group | Unknown | + + + Author + + + | Author | [facility] | | | and [place] | + + + | Organization | [facility] | | [...] | | | | | [place] [address] | | + + + + + | Josie Sparks | ECON | Unknown | | + + + + + Care Team Providers + +------+ + | Care Telehealth Coordinator Name | Role | Phone | [...] | | CLINIC [address] | [address] [facility] [address] [place] | | | | | [address] [place], | [place] [address] | | | | | [place] [address] | [phone] | | | | | [phone] | | | +--------+ + + + [...] [place] | | | | | | [address] | | | | | | | | +--------+---------+ + + + as of this encounter Visit Diagnoses + + | Diagnosis | + + | Chronic bilateral low back pain without sciatica | + + | Strain of neck muscle, subsequent encounter | + +"
--- OUTSIDE RECORDS SUMMARY | ~2017-06-01 | XMS | Encounter Summary ---
Demographics + + + | Address | [address] | | | [place] [address] | + + + | Home Phone | | + + + | Preferred Language | Unknown | + + + | Marital Status | | + + + | Buddhism Affiliation | Unknown | + + + | Race | Unknown | + + + | Ethnic Group | Unknown | + + + Author + + + | Author | [facility] | | | and [place] | + + + | Organization | [facility] | | | [...] | | | | | [place] [address] | | + + + + + | Josie Sparks | ECON | Unknown | | + + + + + Care Team Providers + +------+ + | Care Ocular Pathologist Name | Role | Phone | + [...] [address] | | | | | [place] [address] | | | | | | [phone] | | | +--------+--------+ + + + [...] [place] | | | | | | [address] | | | | | | | [...]
--- OUTSIDE RECORDS SUMMARY | ~2017-06-01 | XMS | Encounter Summary ---
Demographics + + + | Address | [address] | | | [place] [address] | + + + | Home Phone | | + + + | Preferred Language | Unknown | + + + | Marital Status | | + + + | Druze Affiliation | Unknown | + + + | Race | Unknown | + + + | Ethnic Group | Unknown | + + + Author + + + | Author | [facility] | | | and [place] | + + + | Organization | [facility] | | | [...] | | | | | [place] [address] | | + + + + + | Josie Sparks | ECON | Unknown | | + + + + + Care Team Providers + +------+ + | Care Compliance Investigator Name | Role | Phone | + +------+ + | Antonio De Leon MD | PCP | | + +------+ + Reason for Referral Evaluate & Treat (Routine) +--------+ + + + + + | Status | Reason | Specialty | Diagnoses / | Referred By | Referred To | | | | | Procedures | Contact | Contact | +--------+ + + + + + | Closed | Patient | | Diagnoses | Malika, | [facility] | | | Preference | | Chronic | French | [place] | | | | | bilateral | [place], | PHYSICAL | | | | | low back | [address] | [place] - [place] | | | | | pain without | [address] | [place] [address] | | | | | sciatica | [address] [place] | | | | | Strain of | [place], | [place], [place] | | | | | neck muscle, | [place] [address] | [address] | | | | | subsequent | Phone: | Phone: | | | | | encounter | [phone] | [phone] | | | | | Procedures | Fax: | Fax: | | | | | EVAL AND | [phone] | [phone] | | | | | TREAT | | | +--------+ + + + + + Reason for Visit + + + | Reason | Comments | + + + | Follow-up | Low Back Pain, Meds | + + + Encounter Details +--------+---------+ + + + | Date | Type | Department | Care Team | Description | +--------+---------+ + + + | 03/19/ | Office | [facility] | French Daly | Chronic bilateral | | 2018 | Visit | HOSPITAL NEUROLOGY | [address] | low back pain | | | | CLINIC [address] | [address] | without sciatica | | | | DR [address] [place], | [place] [address] | (Primary Dx); Right | | | | [place] [address] | [phone] | lumbar radiculitis - | | | | [phone] | | appears to affect | | [...] | | | | pain syndrome | +--------+---------+ + + + Social History + + [...] + + + | Blood Pressure | 160/80 | 03/19/20171413 PST | + + + + | Pulse | 81 | 03/19/20174 PST | + + + + | Temperature | - | - | + + + + | Respiratory Rate | 18 | 03/19/20171413 PST | + + + + | Oxygen Saturation | 97% | 03/19/20171413 PST | + + + + | Inhaled Oxygen | - | - | | Concentration | | | + + + + | Weight | 57.6 kg (127 lb) | 03/19/20171413 PST | + + + + | Height | 165.1 cm (5' 5") | 03/19/20171413 PST | + + + + | Body Mass Index | 21.13 | 03/19/20171413 PST | + + + + in this encounter Progress Notes French Daly ARNP - 03/19/2017 1415 PSTFormatting of this note may be different f rom the original. Subjective: Patient ID: Perla Verduzco is a 56 y.o. female. She is here today for a follow up on her head aches, neck and back pain. She is noticing that the Tizanidine and the Cyclobenzaprine are no longer working for the neck and back spasms. She has tried Robaxin in the past and that proved to be ineffective and she developed itching when she took Baclofen. I will see if Ca risoprodol 250 mg THREE TIMES A DAY prn will work at this time along with the diclofenac or ketorolac as an anti-inflammatory. She is still utilizing moist heat along with Oxycodone t hat she gets from her PCP on a Pain Management Agreement with him. Patient's medications, allergies, past medical, surgical, social and family histories were obtained and reviewed as appropriate. Review of Systems Respiratory: Asthma Cardiovascular: Hypertension Gastrointestinal: GERD Musculoskeletal: Positive for back pain and neck pain. Avascular necrosis bilateral knees and hips Neurological: Positive for headaches. Carpal tunnel syndrome, migraine headaches without aura Objective: Vitals: 03/19/17 1414 BP: 160/80 Pulse: 81 Resp: 18 PainSc: 7 PainLoc: Back Physical Exam : General Well developed, well nourished, well groomed HEENT Normocephalic, atruamatic Cardiovascular Heart rate and rhythm normal, no murmurs Neuro Left handed Mental Status Awake, alert, oriented to person, place and time Attention and concentration intact Language/speech: fluent with conversation, no lag with answering questions Behavior Appropriate Mood normal Affect normal Cranial Nerves I- deferred II- pupils are equally round and reactive to light. Visual littlejohn are full to confrontation . Optic discs are flat with sharp margins bilaterally. III, IV and : Extraocular movements intact. No nystagmus or ptosis, normal ocular pursui ts V- Facial Sensation intact Normal strength of masticatory muscles. VII- No facial weakness or asymmetry VIII- Hearing intact to voice IX- Palate elevates symmetrically. XI- Shoulder shrug full strength. XII- Tongue is midline. No atrophy or fasciculations Motor No focal weakness-Quite guarded in performing manual motor testing in the upper and lower extremities due to neck and back pain. No upper extremity drift Tremors absent Involuntary Movements absent Rigidity/ Cogwheel rigidity absent Sensory Pinprick, vibration and position sense intact in all extremities Positive Tinel's sign at the wrist bilaterally, negative Phalen's sign. Reflexes Deep Tendon Reflexes intact 1+ Babinski negative Frontal release signs absent Gait and Station Normal No shuffling Arm swing normal Tandem gait intact Turning not impaired Coordination Finger to nose normal MiscellaneousComplains of low back pain 7/10 today on the pain scale Assessment: 1. Chronic bilateral low back pain without sciatica - * Tim [facility] - AMB Referral; Future - carisoprodol (SOMA) 250 MG tablet; Take 1 tablet by mouth 3 times daily as needed for Mus miranda spasms. Dispense: 90 tablet; Refill: 0 2. Right lumbar radiculitis - appears to affect the right L5 nerve root 3. Chronic migraine 4. Strain of neck muscle, subsequent encounter - * Tim [facility] - AMB Referral; Future - carisoprodol (SOMA) 250 MG tablet; Take 1 tablet by mouth 3 times daily as needed for Mus miranda spasms. Dispense: 90 tablet; Refill: 0 5. Chronic pain syndrome - ketorolac (TORADOL) 10 MG tablet; TAKE 1 TABLET BY MOUTH THREE TIMES DAILY NEEDED FOR PAIN Dispense: 30 tablet; Refill: 2 Plan: Discontinue Tizanidine and Flexeril, trial Carisoprodol 250 mg THREE TIMES A DAY prn for sp asms; continue other medications as prescribed. Follow up with PCP as indicated. Schedule physical therapy for neck and back pain, in [place] if possible. in this encounter Plan of Treatment +--------+---------+ + + + | Date | Type | Specialty | Care Team | Description | +--------+---------+ + + + | 09/02/ | Office | Neurology | Max Dalton MD | | | 2018 | Visit | | [address] | | | | | | [place] | | | | | | [address] | | | | | | | | +--------+---------+ + + + + +--------+ + + | Name | Priori | Associated Diagnoses | Order Schedule | | | ty | | | + +--------+ + + | * [facility] | Routin | Chronic bilateral | 1 Occurrences | | Therapy - AMB Referral | e | low back pain | starting 03/19/2017 | | | | without sciatica | until 03/19/2018 | | | | Strain of neck | | | | | muscle, subsequent | | | | | encounter | | + +--------+ + + as of this encounter Visit Diagnoses + + | Diagnosis | + + | Chronic bilateral low back pain without sciatica - Primary | + + | Right lumbar radiculitis - appears to affect the right L5 nerve root | + + | Thoracic or lumbosacral neuritis or radiculitis, unspecified | + + | Chronic migraine | + + | Chronic migraine without aura, without mention of intractable migraine without mention | | of status migrainosus | + + | Strain of neck muscle, subsequent encounter | + + | Chronic pain syndrome | + +
--- OUTSIDE RECORDS SUMMARY | ~2017-06-01 | XMS | Encounter Summary ---
Demographics + + + | Address | [address] | | | [place] [address] | + + + | Home Phone | | + + + | Preferred Language | Unknown | + + + | Marital Status | | + + + | Samaritan Affiliation | Unknown | + + + | Race | Unknown | + + + | Ethnic Group | Unknown | + + + Author + + + | Author | [facility] | | | and [place] | + + + | Organization | [facility] | | | [...] | | | | | [place] [address] | | + + + + + | Josie Sparks | ECON | Unknown | | + + + + + Care Team Providers + +------+ + | Care Project Development Leader Name | Role | Phone | + [...] | CLINIC [address] | [address] [facility] [address] | | | | | [address] [place], | [place] [address] | | | | | [place] [address] | [phone] | | | | | [phone] | | | +--------+ + + + [...]
--- OUTSIDE RECORDS SUMMARY | ~2017-06-01 | XMS | Encounter Summary ---
Demographics + + + | Address | [address] | | | [place] [address] | + + + | Home Phone | | + + + | Preferred Language | Unknown | + + + | Marital Status | | + + + | Protestant Affiliation | Unknown | + + + [...] | | | | | [place] [address] | | + + + + + | Josie Sparks | ECON | Unknown | | + + + + + Care Team Providers + +------+ + | Care Power Manager Name | Role | Phone | [...] | CLINIC [address] | [address] [facility] [address] | | | | | DR [address] [place], | [place] [address] | | | | | [place] [address] | [phone] | | | | | [phone] | | | +--------+ + + + [...] [place] | | | | | | [id number] | | | | | | | | +--------+---------+ + + + as of this encounter Visit Diagnoses + + | Diagnosis | + + | Chronic bilateral low back pain without sciatica | + + | Strain of neck muscle, subsequent encounter | + +"
--- OUTSIDE RECORDS SUMMARY | ~2017-06-01 | XMS | Encounter Summary ---
Demographics + + + | Address | [address] | | | [place] [address] | + + + | Home Phone | | + + + | Preferred Language | Unknown | + + + | Marital Status | | + + + | Anabaptism Affiliation | Unknown | + + + | Race | Unknown | + + + | Ethnic Group | Unknown | + + + Author + + + | Author | [facility] | | | and [place]yeana | + + + | Organization | [facility] | | | [...] | | | | | [place] [address] | | + + + + + | Josie Sparks | ECON | Unknown | | + + + + + Care Team Providers + +------+ + | Care Electric Arc Furnace Operator Name | Role | Phone | + +------+ + | Antonio De Leon MD | PCP | | + +------+ + Reason for Visit + + + | Reason | Comments | + + + | Medication | toradol shot | | Management | | + + + Encounter Details +--------+ + + + + | Date | Type | Department | Care Team | Description | +--------+ + + + + | 03/15/ | Telephone | [facility] | Max Dalton MD | Medication | | 2018 | | [facility] | [address] | Management (toradol | | | | CLIN[facility] [address] | [place], [place] | shot) | | | | DR ARACELIS [place], | [address] | | | | | [place] [address] | | | | | | [phone] | | | +--------+ + + + [...] [place] | | | | | | [id number] | | | | | | | | +--------+---------+ + + + as of this encounter Visit Diagnoses Not on filein this encounter"
--- OUTSIDE RECORDS SUMMARY | ~2017-06-01 | XMS | Clinical Summary ---
Demographics + + + | Address | [address] | | | [place] [address] | + + + | Home Phone | | + + + | Preferred Language | Unknown | + + + | Marital Status | | + + + | Faith Affiliation | Unknown | + + + [...] | | | | | [place] [address] | | + + + + + | Josie Sparks | SUSAN | Unknown | | + + + + + Care Team Providers + +------+ + | Care Photograph Finisher Name | Role | Phone | + [...] | 02/2 | | Activ | | (MAXALT-CDL INSTRUCTOR) 10 mg | mouth as needed for [...] right | | 2018 | | | ELECTRIFICATION ADVISER | middle finger | | | | [...] [place] | | | | | | [address] | | | | | | | [...] | | al/Fam | | 1961 | [phone] | [place] [address] | | | charlie | | | [address] Home: | | | | | | | | | | | | | | [phone] | | | | | | | [address] | | + +--------+ +--------+ + + | CHAI VERDUZCO | Person | Self | [birth year] | Work: | [address] | | | elian/Yayo | | 1961 | [phone] | [place] [address] | | | charlie | | | [address] Home: | | | | | | | | | | | | | | +- | | | | | | | [address] | | + +--------+ +--------+ + +
--- OUTSIDE RECORDS SUMMARY | ~2017-06-01 | XMS | Encounter Summary ---
Demographics + + + | Address | [address] | | | [place] [address] | + + + | Home Phone | | + + + | Preferred Language | Unknown | + + + | Marital Status | | + + + | Sikhism Affiliation | Unknown | + + + | Race | Unknown | + + + | Ethnic Group | Unknown | + + + Author + + + | Author | [facility] | | | and Kyeana | + + + | Organization | [facility] | | | [...] | | | | | [place] [address] | | + + + + + | Josie Sparks | ECON | Unknown | | + + + + + Care Team Providers + +------+ + | Care Transport Manager Name | Role | Phone | [...] Description | +--------+--------+ + + + | 03/25/ | Refill | [facility] | French Daly | Medication Refill | | 2017 | | [facility]PITAL [facility] | [address] | | | | | CL[address] | [address] | | | | | DR ARACELIS [place], | [place] [address] | | | | | [place] [address] | [phone] | | | | | [phone] | | | +--------+--------+ + + + [...] [place] | | | | | | [address] | | | | | | | | +--------+---------+ + + + as of this encounter Visit Diagnoses + + | Diagnosis | + + | Migraine without aura and without status migrainosus, not intractable - Primary | + + | Migraine without aura, without mention of intractable migraine without mention of | | status migrainosus | + + | Chronic pain syndrome | + +"
--- OUTSIDE RECORDS SUMMARY | ~2017-06-01 | XMS | Encounter Summary ---
Demographics + + + | Address | [address] | | | [place] [address] | + + + | Home Phone | | + + + | Preferred Language | Unknown | + + + | Marital Status | | + + + | Anabaptism Affiliation | Unknown | + + + | Race | Unknown | + + + | Ethnic Group | Unknown | + + + Author + + + | Author | [facility] | | | and [place]yeana | + + + | Organization | [facility] | | | [...] | | | | | [place] [address] | | + + + + + | Josie Sparks | ECON | Unknown | | + + + + + Care Team Providers + +------+ + | Care Production Line Mechanic Name | Role | Phone | + [...] | | | | low back | EXTRUSION PROCESS OPERATOR [address] | THERAPY - [place] | | | | | pain without | [address] | [place] [address] | | | | | sciatica | [address] [place] | | | | | Strain of | [place], | [place], [place] | | | | | neck muscle, | [place] [address] | [address] | | | | | subsequent | Phone: | Phone: | | | | | encounter | [phone] | [phone] | | | | | Procedures | Fax: | Fax: | | | | | EVAL AND | [phone] | [phone] | | | | | TREAT | [...] DR ARACELIS [place], | [place] [address] | (Primary Dx); Right | | | | [place] [address] | [phone] | lumbar radiculitis - | | | | [phone] | | appears to affect | | [...] therapy for neck and back pain, in [place] if possible. in this encounter Plan of [...] [place] | | | | | | [address] | | | | | | | [...]
--- OUTSIDE RECORDS SUMMARY | ~2017-06-01 | XMS | Encounter Summary ---
Demographics + + + | Address | [address] | | | [place] [address] | + + + | Home Phone | | + + + | Preferred Language | Unknown | + + + | Marital Status | | + + + | Advent Affiliation | Unknown | + + + | Race | Unknown | + + + | Ethnic Group | Unknown | + + + Author + + + | Author | [facility] | | | and [place]yeana | + + + | Organization | [facility] | | | and [...] | | | | | [place] [address] | | + + + + + | Josie Sparks | ECON | Unknown | | + + + + + Care Team Providers + +------+ + | Care Enrollment Management Vice President Name | Role | Phone | + [...] | | CLINIC [address] | [place] | (Primary Dx) | | | | DR [place], | [address] | | | | | [place] [address] | | | | | | [phone] | | | +--------+ + + + [...] [place] | | | | | | [address] | | | | | | | [...]
--- OUTSIDE RECORDS SUMMARY | ~2017-06-01 | XMS | Encounter Summary ---
Demographics + + + | Address | [address] | | | [place] [address] | + + + | Home Phone | | + + + | Preferred Language | Unknown | + + + | Marital Status | | + + + | Protestant Affiliation | Unknown | + + + | Race | Unknown | + + + | Ethnic Group | Unknown | + + + Author + + + | Author | [facility] | | | and [place]yeana | + + + | Organization | [facility] | | [...] | | | | | [place] [address] | | + + + + + | Josie Sparks | ECON | Unknown | | + + + + + Care Team Providers + +------+ + | Care Nurse Staff Community Health Name | Role | Phone | + [...] CLINIC [address] | [address] [facility] [place] | | | | | DR ARACELIS [place], | [place] [address] | | | | | [place] [address] | [phone] | | | | | [phone] | | | +--------+ + + + [...]
--- OUTSIDE RECORDS SUMMARY | ~2017-06-01 | XMS | Encounter Summary ---
Demographics + + + | Address | [address] | | | [place] [address] | + + + | Home Phone | | + + + | Preferred Language | Unknown | + + + | Marital Status | | + + + | Jain Affiliation | Unknown | + + + | Race | Unknown | + + + | Ethnic Group | Unknown | + + + Author + + + | Author | [facility] | | | and [place]ye[place] | + + + | Organization | [facility] | | | and [...] | | | | | [place] [address] | | + + + + + | Josie Sparks | ECON | Unknown | | + + + + + Care Team Providers + +------+ + | Care Strip Cleaner Name | Role | Phone | + [...] [address] | | | | | [place] [address] | | | | | | [phone] | | | +--------+--------+ + + + [...] [place] | | | | | | [address] | | | | | | | [...]
--- OUTSIDE RECORDS SUMMARY | ~2017-06-01 | XMS | Encounter Summary ---
Demographics + + + | Address | [address] | | | [place] [address] | + + + | Home Phone | | + + + | Preferred Language | Unknown | + + + | Marital Status | | + + + | Zoroastrian Affiliation | Unknown | + + + | Race | Unknown | + + + | Ethnic Group | Unknown | + + + Author + + + | Author | [facility] | | | and [place]yeana | + + + | Organization | [facility] | | [...] | | | | | [place] [address] | | + + + + + | Josie Sparks | ECON | Unknown | | + + + + + Care Team Providers + +------+ + | Care Patent Chemist Name | Role | Phone | + [...] (Toradol Inj) | | 2018 | | [facility] | [address] | | | | | CLIN[address] | [address] [place] | | | | | DR ARACELIS [place], | [place] [address] | | | | | [place] [address] | [phone] | | | | | [phone] | | | +--------+ + + + [...] [place] | | | | | | [address] | | | | | | | | +--------+---------+ + + + as of this encounter Visit Diagnoses Not on filein this encounter"
--- OUTSIDE RECORDS SUMMARY | ~2017-06-01 | XMS | Clinical Summary ---
Demographics + + + | Address | [address] | | | [place] [address] | + + + | Home Phone | | + + + | Preferred Language | Unknown | + + + | Marital Status | | + + + | Hoahaoism Affiliation | Unknown | + + + [...] Providers + +------+ + | Care Clinical Nursing Intern Name | Role | Phone | + +------+ + | Antonio De Leon MD | PP | | + +------+ + Source Comments [facility] is [facility] InPatient.[facility] Allergies + + + + + + [...]
--- OUTSIDE RECORDS SUMMARY | ~2017-06-01 | XMS | Clinical Summary ---
Demographics + + + | Address | [address] | | | [place] [address] | + + + | Home Phone | | + + + | Preferred Language | Unknown | + + + | Marital Status | | + + + | Alevism Affiliation | Unknown | + + + [...] Team Providers + +------+ + | Care Ditto Machine Operator Name | Role | Phone | + +------+ + | Antonio De Loen MD | PP | | + +------+ + Source Comments [facility] is [facility] both [facility] InPatient.[facility] Allergies + + + + + + [...]
--- OUTSIDE RECORDS SUMMARY | ~2017-06-01 | XMS | Encounter Summary ---
Demographics + + + | Address | [address] | | | [place] [address] | + + + | Home Phone [...] | | | | | [place] [address] | | + + + + + | Josie Sparks | ECON | Unknown | | + + + + + Care Team Providers + +------+ + | Care Galley Boy Name | Role | Phone | + [...] [address] | | | | | [place] [address] | | | | | | [phone] | | | +--------+ + + + [...] [place] | | | | | | [id number] | | | | | | | | +--------+---------+ + + + as of this encounter Visit Diagnoses Not on filein this encounter"
--- OUTSIDE RECORDS SUMMARY | ~2017-06-01 | XMS | Encounter Summary ---
Demographics + + + | Address | [address] | | | [place] [address] | + + + | Home Phone [...] | | | | | [place] [address] | | + + + + + | Josie Sparks | ECON | Unknown | | + + + + + Care Team Providers + +------+ + | Care Property Staff Accountant Name | Role | Phone | + [...] DR ARACELIS [place], | [place] [address] | | | | | [place] [address] | [phone] | | | | | [phone] | | | +--------+--------+ + + + [...] [place] | | | | | | [address] | | | | | | | [...]
--- OUTSIDE RECORDS SUMMARY | ~2017-06-01 | XMS | Encounter Summary ---
Demographics + + + | Address | [address] | | | [place] [address] | + + + | Home Phone | | + + + | Preferred Language | Unknown | + + + | Marital Status | | + + + | Rastafarian Affiliation | Unknown | + + + | Race | Unknown | + + + | Ethnic Group | Unknown | + + + Author + + + | Author | [facility] | | | and [place]ye[place] | + + + | Organization | [facility] | | [...] | | | | | [place] [address] | | + + + + + | Josie Sparks | ECON | Unknown | | + + + + + Care Team Providers + +------+ + | Care Enrober Name | Role | Phone | + [...] [address] | [address] | radiculitis - | | | | DR ARACELIS [place], | [place] [address] | appears to affect | | | | [place] [address] | [phone] | the right L5 nerve | | | | [phone] | | root; Chronic | | | [...] this encounter Progress Notes Malika Frenchgisele Johnson, INDUSTRIAL RECRUITER - 04/17/2017 1615 PSTFormatting of this note [...] 60 mg IM today. Sana Guidry CC QUARTZ MOUNTER - 04/17/2017 1615 PSTToradol injection given right glute, no adv erse reactions noted, per pt has had medication before. Electronically signed by: AYAN Joshi [facility] 04/17/2017 16:33 in this encounter Plan of [...] [place] | | | | | | [id number] | | | | | | | [...]
--- OUTSIDE RECORDS SUMMARY | ~2017-06-01 | XMS | Encounter Summary ---
Demographics + + + | Address | [address] | | | [place] [address] | + + + | Home Phone | | + + + | Preferred Language | Unknown | + + + | Marital Status | | + + + | Taoist Affiliation | Unknown | + + + | Race | Unknown | + + + | Ethnic Group | Unknown | + + + Author + + + | Author | [facility] | | | and [place] | + + + | Organization | [facility] | | [...] | | | | | [place] [address] | | + + + + + | Josie Sparks | ECON | Unknown | | + + + + + Care Team Providers + +------+ + | Care Appian Bpm Developer Name | Role | Phone | + [...] | CLINIC [address] | [address] [facility] [place] | | | | | DR ARACELIS [place], | [place] [address] | | | | | [place] [address] | [phone] | | | | | [phone] | | | +--------+ + + + [...] [place] | | | | | | [id number] | | | | | | | | +--------+---------+ + + + as of this encounter Visit Diagnoses + + | Diagnosis | + + | Chronic bilateral low back pain without sciatica | + + | Strain of neck muscle, subsequent encounter | + +"
--- OUTSIDE RECORDS SUMMARY | ~2017-06-01 | XMS | Encounter Summary ---
Demographics + + + | Address | [address] | | | [place] [address] | + + + | Home Phone | | + + + | Preferred Language | Unknown | + + + | Marital Status | | + + + | Jainism Affiliation | Unknown | + + + [...] | | | | | [place] [address] | | + + + + + | Josie Sparks | ECON | Unknown | | + + + + + Care Team Providers + +------+ + | Care Recording Artist Name | Role | Phone | + [...] Medication Refill | | 2017 | | [facility] | [address] | (refill request) | | | | [facility] [address] | [facility] [address] | | | | | DR ARACELIS [place], | [place] [address] | | | | | [place] [address] | [phone] | | | | | [phone] | | | +--------+--------+ + + + [...] [place] | | | | | | [id number] | | | | | | | [...]
--- OUTSIDE RECORDS SUMMARY | ~2017-06-01 | XMS | Encounter Summary ---
Demographics + + + | Address | [address] | | | [place] [address] | + + + | Home Phone | | + + + | Preferred Language | Unknown | + + + | Marital Status | | + + + | Adventism Affiliation | Unknown | + + + [...] | | | | | [place] [address] | | + + + + + | Josie Sparks | ECON | Unknown | | + + + + + Care Team Providers + +------+ + | Care Energy Assistant Name | Role | Phone | + [...] | | | DR [place] [place], | [address] | | | | | [place] [address] | | | | | | [phone] | | | +--------+ + + + [...] [place] | | | | | | [address] | | | | | | | [...]
--- OUTSIDE RECORDS SUMMARY | ~2017-06-01 | XMS | Encounter Summary ---
Demographics + + + | Address | [address] | | | [place] [address] | + + + | Home Phone | | + + + | Preferred Language | Unknown | + + + | Marital Status | | + + + | Roman Catholic Affiliation | Unknown | + + + | Race | Unknown | + + + | Ethnic Group | Unknown | + + + Author + + + | Author | [facility] | | | and [place] | + + + | Organization | [facility] | | | [...] | | | | | [place] [address] | | + + + + + | Josie Sparks | ECON | Unknown | | + + + + + Care Team Providers + +------+ + | Care Client Business Manager Name | Role | Phone | [...] | unspecified, | | | | [place] [address] | | unspecified back | | | | [phone] | | pain laterality, | | | [...] [place] | | | | | | [address] | | | | | | | [...]
--- OUTSIDE RECORDS SUMMARY | ~2017-06-01 | XMS | Encounter Summary ---
Demographics + + + | Address | [address] | | | [place] [address] | + + + | Home Phone | | + + + | Preferred Language | Unknown | + + + | Marital Status | | + + + | Presybeterian Affiliation | Unknown | + + + [...] | | | | | [place] [address] | | + + + + + | Josie Sparks | ECON | Unknown | | + + + + + Care Team Providers + +------+ + | Care Boiler Shop Supervisor Name | Role | Phone | [...] DR ARACELIS [place], | [place] [address] | appears to affect | | | | [place] [address] | [phone] | the right L5 nerve | | | | [phone] | | root; Chronic | | | [...] this encounter Progress Notes Malika Frenchgisele Johnson, FIRING PIN GAUGER - 04/17/2017 1615 PSTFormatting of this note [...] 60 mg IM today. Sana Guidry CC TRAFFIC OPERATOR - 04/17/2017 1615 PSTToradol injection given right glute, no adv erse reactions noted, per pt has had medication before. Electronically signed by: AYAN Joshi [facility] 04/17/2017 16:33 in this encounter Plan of [...] [place] | | | | | | [id number] | | | | | | | [...]
--- OUTSIDE RECORDS SUMMARY | ~2017-06-01 | XMS | Encounter Summary ---
Demographics + + + | Address | [address] | | | [place] [address] | + + + | Home Phone | | + + + | Preferred Language | Unknown | + + + | Marital Status | | + + + | Jewish Affiliation | Unknown | + + + | Race | Unknown | + + + | Ethnic Group | Unknown | + + + Author + + + | Author | [facility] | | | and [place] | + + + | Organization | [facility] | | [...] | | | | | [place] [address] | | + + + + + | Josie Sparks | ECON | Unknown | | + + + + + Care Team Providers + +------+ + | Care Manager Retail Sales Name | Role | Phone | + [...] Medication Refill | | 2017 | | [facility] | [address] | (refill request) | | | | [facility] [address] | [facility] [address] | | | | | DR ARACELIS [place], | [facility] [place] [address] | | | | | [place] [address] | [phone] | | | | | [phone] | | | +--------+--------+ + + + [...] [place] | | | | | | [id number] | | | | | | | [...]
--- OUTSIDE RECORDS SUMMARY | ~2017-06-01 | XMS | Encounter Summary ---
Demographics + + + | Address | [address] | | | [place] [address] | + + + | Home Phone [...] | | | | | [place] [address] | | + + + + + | Josie Sparks | ECON | Unknown | | + + + + + Care Team Providers + +------+ + | Care Block Sawyer Name | Role | Phone | + [...] 2018 | | HOSPITAL NE[facility]OLOGY | Elizabeth RESEARCH STUDY ASSISTANT [address] | ) | | | | CL[address] | [address] | | | | | DR ARACELIS [place], | [place] [address] | | | | | [place] [address] | [phone] | | | | | [phone] | | | +--------+ + + + [...] [place] | | | | | | [address] | | | | | | | | +--------+---------+ + + + as of this encounter Visit Diagnoses Not on filein this encounter"
[~2017-06-01 17:23] MED LIST: ADVAIR HFA 230-12 GM INH; ALLEGRA180 MG PO; AUGMENTIN 875-1 EACH PO; AZELASTINE137 MCG/0. NAS; BLACK COHOSH40 M1 PO; BUSPIRONE HCL10 MG PO; BUTALB-ACETAMI1 EACH PO; CARAFATE1 GM PO; CATAPRES0.3 MG PO; CLONIDINE HCL0.1 MG PO; CLONIDINE HCL0.3 MG PO; CYCLOBENZAPRINE10 MG; CYCLOBENZAPRINE10 MG PO; CYMBALTA30 MG PO; DICLOFENAC SODI25 MG PO; DICLOFENAC SODI75 MG PO; DILAUDID4 MG PO; EFFEXOR XR37.5 MG PO; EPIPEN 2-P0.3 MG/0.3 IM; FIORICET 50-321 EACH PO; FLAGYL500 MG PO; FLEXERIL10 MG PO; FLONASE2 SPRAY; GABAPENTIN300 MG PO; HYDROCHLOROTHIA25 MG PO; HYDROMORPHONE HC4 MG PO; IPRAT-ALBUT 0.5-3 ML INH; KETOROLAC TROME10 MG PO; LANSOPRAZOLE30 MG PO; LISINOPRIL20 MG PO; LORAZEPAM2 MG PO; LOVASTATIN10 MG PO; LOVASTATIN20 MG PO; METHYLPREDNISOLO4 M1 PO; MIRALAX119 GM PO; MIRALAX17 GM PO; NAPROSYN500 MG PO; OXYCODONE HCL15 MG PO; OXYCONTIN20 MG PO; OXYCONTIN40 MG PO; OXYCONTIN60 MG PO; PREMARIN0.3 MG PO; PREVACID30 MG PO; PROAIR HFA8.5 GM INH; PROGESTERONE100 MG PO; SINGULAIR10 MG PO; SUCRALFATE1 GM PO; TRAZODONE HCL100 MG PO; VOLTAREN-XR100 MG PO; XARELTO10 MG PO; ZESTRIL20 MG PO; ZYRTEC10 MG PO
[2017-06-01] MEDS ORDERED: AMLODIPINE BESYL5 MG PO (17:48)
[2017-06-01] MEDS ORDERED: BUSPIRONE HCL5 GM MC (17:57)
[2017-06-01] MEDS ORDERED: BUSPIRONE HCL5 MG PO (17:58)
[2017-06-01] MEDS ORDERED: DILAUDID2 MG PO (18:45)
[2017-06-01] MEDS ORDERED: MONDOXYNE NL100 MG PO (18:45)
[2017-06-03] MEDS ORDERED: DOXYCYCLINE MO100 MG PO (18:11)
[2017-06-03] MEDS ORDERED: DICLOFENAC SODI75 MG PO (18:13)
[2017-06-03] MEDS ORDERED: FLUTICASONE PRO16 GM NAS (18:14)
[2017-06-03] MEDS ORDERED: VENLAFAXINE HC150 MG PO (18:14)
[2017-06-03] MEDS ORDERED: GABAPENTIN600 MG PO (18:15)
[2017-06-03] MEDS ORDERED: RIZATRIPTAN10 M1 PO (18:19)
== END 2017-06-01 19:19 | disposition home or self-care (01) ==
LOC: ED 17:23
DX: L73.2 Hidradenitis suppurativa (principal); I88.9 Nonspecific lymphadenitis, unspecified; Z91.038 Other insect allergy status; Z88.1 Allergy status to other antibiotic agents; Z88.8 Allergy status to other drugs, medicaments and biological substances; Z88.5 Allergy status to narcotic agent; Z79.899 Other long term (current) drug therapy
CPT/HCPCS: 87070; 87077; 87186; 87205; 99283

== ENCOUNTER 2017-06-03 18:21 | Inpatient (IN) | payer BC ==
[~2017-06-03] VITALS: Ht 165.1 cm; Wt 56.2 kg
--- OUTSIDE RECORDS SUMMARY | ~2017-06-03 | XMS | Encounter Summary ---
Demographics + + + | Address | [address] | | | [place] [address] | + + + | Home Phone | | + + + | Preferred Language | Unknown | + + + | Marital Status | | + + + | Mandaeism Affiliation | Unknown | + + + | Race | Unknown | + + + | Ethnic Group | Unknown | + + + Author + + + | Author | [facility] | | | and [place] | + + + | Organization | [facility] | | | and [place] | + + + | Address | Unknown | + + + | Phone | Unavailable | + + + Support + + + + + | Name | Relationship | Address | Phone | + + + + + | Winifred Verduzco | NA | | | | | NA, | | + + + + + | James Verduzco | SUSAN | [address] | | | | | [place] [address] | | + + + + + | Josie Sparks | ECON | Unknown | | + + + + + Care Team Providers + +------+ + | Care Animal Husbandry Teacher Name | Role | Phone | + +------+ + | Antonio De Leon MD | PCP | | + +------+ + Reason for Visit + + + | Reason | Comments | + + + | Medication Refill | refill request | + + + Encounter Details +--------+--------+ + + + | Date | Type | Department | Care Team | Description | +--------+--------+ + + + | 03/19/ | Refill | [place] [facility] | French Daly | Medication Refill | | 2018 | | [facility] | [address] | (refill request) | | | | CL[facility] [address] | [facility] [address] | | | | | DR ARACELIS [place], | [place] [address] | | | | | [place] [address] | [phone] | | | | | [phone] | | | +--------+--------+ + + + Social History + + + +--------+------+ | Tobacco Use | Types | Packs/Day | Years | Date | | | | | Used | | + + + +--------+------+ | Current Every Day | Cigarettes | 0.8 | 30 | | | Smoker | | | | | + + + +--------+------+ + +---+---+---+ | Smokeless Tobacco: | | | | | Never Used | | | | + +---+---+---+ + + +---------+ + | Alcohol Use | Drinks/We | oz/Week | Comments | | | ek | | | + + +---------+ + | No | | | | + + +---------+ + + + + | Sex Assigned at | Date Recorded | | | | + + + | Not on file | | + + + as of this encounter Plan of Treatment +--------+---------+ + + + | Date | Type | Specialty | Care Team | Description | +--------+---------+ + + + | 09/02/ | Office | Neurology | Max Dalton MD | | | 2018 | Visit | | [address] | | | | | | [place] | | | | | | [id number] | | | | | | | | +--------+---------+ + + + as of this encounter Visit Diagnoses Not on filein this encounter"
--- OUTSIDE RECORDS SUMMARY | ~2017-06-03 | XMS | Encounter Summary ---
Demographics + + + | Address | [address] | | | [place] [address] | + + + | Home Phone | | + + + | Preferred Language | Unknown | + + + | Marital Status | | + + + | Congregational Affiliation | Unknown | + + + | Race | Unknown | + + + | Ethnic Group | Unknown | + + + Author + + + | Author | [facility] | | | and [place] | + + + | Organization | [facility] | | | [...] | James Verduzco | ECON | [address] | | | | | [place] [address] | | + + + + + | Josie Sparks | ECON | Unknown | | + + + + + Care Team Providers + +------+ + | Care Programs Director Name | Role | Phone | + [...] | unspecified, | | | | [place] [address] | | unspecified back | | | | [phone] | | pain laterality, | | | [...] [place] | | | | | | [address] | | | | | | | [...]
--- OUTSIDE RECORDS SUMMARY | ~2017-06-03 | XMS | Encounter Summary ---
Demographics + + + | Address | [address] | | | [place] [address] | + + + | Home Phone | | + + + | Preferred Language | Unknown | + + + | Marital Status | | + + + | Restorationism Affiliation | Unknown | + + + | Race | Unknown | + + + | Ethnic Group | Unknown | + + + Author + + + | Author | [facility] | | | and Kyeana | + + + | Organization | [facility] | | | [...] | | | | | [place] [address] | | + + + + + | Josie Sparks | ECON | Unknown | | + + + + + Care Team Providers + +------+ + | Care Fast Food Shift Supervisor Name | Role | Phone | + +------+ + | Antonio De Leon MD | PCP | | + +------+ + Reason for Visit +--------+ + | Reason | Comments | +--------+ + | Other | please advise | +--------+ + Encounter Details +--------+ + + + + | Date | Type | Department | Care Team | Description | +--------+ + + + + | 05/07/ | Telephone | [facility] | French Daly | Other (please advise | | 2018 | | HOSPITAL NEUROLOGY | Elizabeth [facility]LECTRON[facility] INSTALLER [address] | ) | | | | [address] | | | | | [address] [place], | [place] [address] | | | | | [place] [address] | [phone] | | | | | [phone] | | | +--------+ + + + [...] | 2017 | Visit | | [address] | | | | | | [place] | | | | | | [address] | | | | | | | | +--------+---------+ + + + as of this encounter Visit Diagnoses Not on filein this encounter"
--- OUTSIDE RECORDS SUMMARY | ~2017-06-03 | XMS | Encounter Summary ---
Demographics + + + | Address | [address] | | | [place] [address] | + + + | Home Phone | | + + + | Preferred Language | Unknown | + + + | Marital Status | | + + + | Restoration Affiliation | Unknown | + + + | Race | Unknown | + + + | Ethnic Group | Unknown | + + + Author + + + | Author | [facility] | | | and Kyeana | + + + | Organization | [facility] | | | [...] | | | | | [place] [address] | | + + + + + | Josie Sparks | ECON | Unknown | | + + + + + Care Team Providers + +------+ + | Care Fabrication And Assembly Supervisor Name | Role | Phone | [...] | 2017 | | HOSPITAL NEUROLOGY | RICAHRD Johnson [address] | | | | | [address] | [address] | | | | | [address] [place], | [place] [address] | | | | | [place] [address] | [phone] | | | | | [phone] | | | +--------+--------+ + + + [...] [place] | | | | | | [address] | | | | | | | [...]
--- OUTSIDE RECORDS SUMMARY | ~2017-06-03 | XMS | Encounter Summary ---
Demographics + + + | Address | [address] | | | [place] [address] | + + + | Home Phone | | + + + | Preferred Language | Unknown | + + + | Marital Status | | + + + | Anglican Affiliation | Unknown | + + + | Race | Unknown | + + + | Ethnic Group | Unknown | + + + Author + + + | Author | [facility] | | | and Kyeana | + + + | Organization | [facility] | | | and [...] | | | | | [place] [address] | | + + + + + | Josie Sparks | ECON | Unknown | | + + + + + Care Team Providers + +------+ + | Care Business Banking Officer Name | Role | Phone | + +------+ + | Antonio De Leon MD | PCP | | + +------+ + Reason for Visit + + + | Reason | Comments | + + + | Numbness | EMG-upper extremities | + + + Encounter Details +--------+ + + + + | Date | Type | Department | Care Team | Description | +--------+ + + + + | 03/28/ | Procedure | [facility] | Max Dalton MD | Bilateral carpal | | 2018 | visit | HOSPITAL NEUROLOGY | [address] | tunnel syndrome | | | | CLIN[facility] [address] | [place] [facility] | (Primary Dx) | | | | DR [address] [place], | [address] | | | | | [place] [address] | | | | | | [phone] | | | +--------+ + + + [...] + + + | Blood Pressure | 138/98 | 03/28/20171427 PST | + + + + | Pulse | 90 | 03/28/20171427 PST | + + + + | Temperature | - | - | + + + + | Respiratory Rate | 20 | 03/28/20171427 PST | + + + + | Oxygen Saturation | 99% | 03/28/20171427 PST | + + + + | Inhaled Oxygen | - | - | | Concentration | | | + + + + | Weight | 55 kg (121 lb 4.1 | 03/28/20171427 PST | | | oz) | | + + + + | Height | 165.1 cm (5' 5") | 03/28/20171427 PST | + + + + | Body Mass Index | 20.18 | 03/28/20171427 PST | + + + + in this encounter Plan of Treatment +--------+---------+ + + + | Date | Type | Specialty | Care Team | Description | +--------+---------+ + + + | 09/02/ | Office | Neurology | Max Dalton MD | | | 2018 | Visit | | [address] | | | | | | [place] | | | | | | [address] | | | | | | | | +--------+---------+ + + + as of this encounter Procedures + +--------+ + + + | [...] section. | + +--------+ + + + in this encounter Results EMG Study- Upper Extremity (03/28/2017 1415) [...] entrapment across the wrists | + + in this encounter Visit Diagnoses + + | Diagnosis | + + | Bilateral carpal tunnel syndrome - Primary | + + | Carpal tunnel syndrome | + +
--- OUTSIDE RECORDS SUMMARY | ~2017-06-03 | XMS | Encounter Summary ---
Demographics + + + | Address | [address] | | | [place] [address] | + + + | Home Phone | | + + + | Preferred Language | Unknown | + + + | Marital Status | | + + + | Zoroastrianism Affiliation | Unknown | + + + | Race | Unknown | + + + | Ethnic Group | Unknown | + + + Author + + + | Author | [facility] | | | and Kyeana | + + + | Organization | [facility] | | | [...] | | | | | [place] [address] | | + + + + + | Josie Sparks | ECON | Unknown | | + + + + + Care Team Providers + +------+ + | Care Oncology Navigator Name | Role | Phone | + [...] + + | 03/19/ | Telephone | [facility] | French Daly | Other (please | | 2018 | | HOSPITAL NEUROLOGY | [address]ARD [address] | advise) | | | | CLIN[address] | [address] [facility] [address] | | | | | DR [address]EL[address] [place], | [place] [address] | | | | | [place] [address] | [phone] | | | | | [phone] | | | +--------+ + + + [...] [place] | | | | | | [id number] | | | | | | | | +--------+---------+ + + + as of this encounter Visit Diagnoses + + | Diagnosis | + + | Chronic bilateral low back pain without sciatica | + + | Strain of neck muscle, subsequent encounter | + +"
--- OUTSIDE RECORDS SUMMARY | ~2017-06-03 | XMS | Encounter Summary ---
Demographics + + + | Address | [address] | | | [place] [address] | + + + | Home Phone | | + + + | Preferred Language | Unknown | + + + | Marital Status | | + + + | Gnosticist Affiliation | Unknown | + + + | Race | Unknown | + + + | Ethnic Group | Unknown | + + + Author + + + | Author | [facility] | | | and Kyeana | + + + | Organization | [facility] | | | [...] | | | | | [place] [address] | | + + + + + | Josie Sparks | ECON | Unknown | | + + + + + Care Team Providers + +------+ + | Care Microwave Remote Sensing Scientist Name | Role | Phone | + +------+ + | Antonio De Leon MD | PCP | | + +------+ + Reason for Visit +--------+ + | Reason | Comments | +--------+ + | Other | Please Advise | +--------+ + Encounter Details +--------+ + + + + | Date | Type | Department | Care Team | Description | +--------+ + + + + | 03/19/ | Telephone | [facility] | French Daly | Other (Please | | 2018 | | HOSPITAL NEUROLOGY | [address] | Advise) | | | | CLIN[address] | [address] [facility] [address] | | | | | DR [address]EL[address], | [place] [address] | | | | | [place] [address] | [phone] | | | | | [phone] | | | +--------+ + + + [...] [place] | | | | | | [address] | | | | | | | | +--------+---------+ + + + as of this encounter Visit Diagnoses Not on filein this encounter"
--- OUTSIDE RECORDS SUMMARY | ~2017-06-03 | XMS | Encounter Summary ---
Demographics + + + | Address | [address] | | | [place] [address] | + + + | Home Phone | | + + + | Preferred Language | Unknown | + + + | Marital Status | | + + + | Worship Affiliation | Unknown | + + + | Race | Unknown | + + + | Ethnic Group | Unknown | + + + Author + + + | Author | [facility] | | | and Kyeana | + + + | Organization | [facility] | | | and [...] | | | | | [place] [address] | | + + + + + | Josie Sparks | ECON | Unknown | | + + + + + Care Team Providers + +------+ + | Care Automobile Mechanic Helper Name | Role | Phone | + [...] | [address] [place], [place] | [place] [address] | | | | | [address] | [phone] | | | | | [phone] | | | +--------+ + + + [...] | 1 | 01/19/20 | | | (MAXALT-ANIMAL BIOLOGIST) 10 mg | MOUTH AT ONSET OF [...] [place] | | | | | | [address] | | | | | | | [...] 1 | | | | Topical, ONCE, [facility] 03/28/17 at | | 17:36 | Applicat | | | | 1745, For 1 dose | | PST | ion | | | + +--------+ + +------+------+ +---+---+ | | | +---+---+ in this encounter
--- OUTSIDE RECORDS SUMMARY | ~2017-06-03 | XMS | Encounter Summary ---
Demographics + + + | Address | [address] | | | [place] [address] | + + + | Home Phone | | + + + | Preferred Language | Unknown | + + + | Marital Status | | + + + | Bahai Affiliation | Unknown | + + + | Race | Unknown | + + + | Ethnic Group | Unknown | + + + Author + + + | Author | [facility] | | | and Kyeana | + + + | Organization | [facility] | | | [...] + | James Verduzco | ECON | [address] | | | | | [place] [address] | | + + + + + | Josie Sparks | ECON | Unknown | | + + + + + Care Team Providers + +------+ + | Care J2Ee Consultant Name | Role | Phone | + [...] | 2017 | | HOSPITAL EMERGENCY | DIRECTOR OF PEOPLE [address] | middle finger | | | | CENTER [address] | [address] [place], [place] | without foreign body | | | | [place] | [address] | without damage to | | | | [address] | | abdi willis | | | | [phone] | | encounter (Primary | | | [...] Everywhere.Laceration, Extremity: Sut ure, Staple, or Tape (Cypriot)in this encounter Medications at Time of Discharge [...] | 1 | 01/19/20 | | | (MAXALT-REPAIRER RECREATIONAL VEHICLE) 10 mg | MOUTH AT ONSET OF [...] [place] | | | | | | [id number] | | | | | | | [...]
--- OUTSIDE RECORDS SUMMARY | ~2017-06-03 | XMS | Encounter Summary ---
Demographics + + + | Address | [address] | | | [place] [address] | + + + | Home Phone | | + + + | Preferred Language | Unknown | + + + | Marital Status | | + + + | Episcopalian Affiliation | Unknown | + + + | Race | Unknown | + + + | Ethnic Group | Unknown | + + + Author + + + | Author | [facility] | | | and Kyeana | + + + | Organization | [facility] [...] | | | | | [place] [address] | | + + + + + | Josie Sparks | ECON | Unknown | | + + + + + Care Team Providers + +------+ + | Care Stretch Machine Operator Name | Role | Phone | + [...] [address] | | | | | [place] [address] | | | | | | [phone] | | | +--------+--------+ + + + [...] [place] | | | | | | [address] | | | | | | | [...]
--- OUTSIDE RECORDS SUMMARY | ~2017-06-03 | XMS | Clinical Summary ---
Demographics + + + | Address | [address] | | | [place] [address] | + + + | Home Phone | | + + + | Preferred Language | Unknown | + + + | Marital Status | | + + + | Mandaen Affiliation | Unknown | + + + | Race | Unknown | + + + | Ethnic Group | Unknown | + + + Author + + + | Author | [facility] | | | and Kyeana | + + + | Organization | [facility] | | | [...] | | | | | [place] [address] | | + + + + + | Josie Sparks | SUSAN | Unknown | | + + + + + Care Team Providers + +------+ + | Care Clinical Allergist Name | Role | Phone | + [...] | 02/2 | | Activ | | (MAXALT-ELECTROPLATER APPRENTICE) 10 mg | mouth as needed for [...] right | | 2018 | | | MANAGER MARITIME | middle finger | | | | [...] [place] | | | | | | [address] | | | | | | | [...] | | al/Fam | | 1961 | [phone] | [place] [address] | | | charlie | | | [address]: | | | | | | | | | | | | | | [phone] | | | | | | | [address] | | + +--------+ +--------+ + + | CHAI VERDUZCO | Person | Self | [birth year] | Work: | [address] | | | elian/Yayo | | 1961 | [phone] | [place] [address] | | | charlie | | | [address] Home: | | | | | | | | | | | | | | +- | | | | | | | [address] | | + +--------+ +--------+ + +
--- OUTSIDE RECORDS SUMMARY | ~2017-06-03 | XMS | Encounter Summary ---
Demographics + + + | Address | [address] | | | [place] [address] | + + + | Home Phone | | + + + | Preferred Language | Unknown | + + + | Marital Status | | + + + | Yarsani Affiliation | Unknown | + + + [...] | | | | | [place] [address] | | + + + + + | Josie Sparks | ECON | Unknown | | + + + + + Care Team Providers + +------+ + | Care Infant Childcare Provider Name | Role | Phone | + [...] | | CLINIC [address] | [address] [facility] [address] | | | | | [address] [place], | [place] [address] | | | | | [place] [address] | [phone] | | | | | [phone] | | | +--------+ + + + [...] [place] | | | | | | [address] | | | | | | | | +--------+---------+ + + + as of this encounter Visit Diagnoses + + | Diagnosis | + + | Chronic bilateral low back pain without sciatica | + + | Strain of neck muscle, subsequent encounter | + +"
--- OUTSIDE RECORDS SUMMARY | ~2017-06-03 | XMS | Encounter Summary ---
Demographics + + + | Address | [address] | | | [place] [address] | + + + | Home Phone | | + + + | Preferred Language | Unknown | + + + | Marital Status | | + + + | Restorationist Affiliation | Unknown | + + + | Race | Unknown | + + + | Ethnic Group | Unknown | + + + Author + + + | Author | [facility] | | | and Kyeana | + + + | Organization | [facility] | | [...] | | | | | [place] [address] | | + + + + + | Josie Sparks | ECON | Unknown | | + + + + + Care Team Providers + +------+ + | Care Handicrafts Teacher Name | Role | Phone | [...] (Toradol Inj) | | 2018 | | [facility] | RICHARD [address] | | | | | CLINIC [address] | [address] | | | | | DR [address] [place], | [place] [address] | | | | | [place] [address] | [phone] | | | | | [phone] | | | +--------+ + + + [...] [place] | | | | | | [address] | | | | | | | | +--------+---------+ + + + as of this encounter Visit Diagnoses Not on filein this encounter"
--- OUTSIDE RECORDS SUMMARY | ~2017-06-03 | XMS | Encounter Summary ---
Demographics + + + | Address | [address] | | | [place] [address] | + + + | Home Phone | | + + + | Preferred Language | Unknown | + + + | Marital Status | | + + + | Temple Affiliation | Unknown | + + + | Race | Unknown | + + + | Ethnic Group | Unknown | + + + Author + + + | Author | [facility] | | | and Kyeana | + + + | Organization | [facility] | | | [...] | | | | | [place] [address] | | + + + + + | Josie Sparks | ECON | Unknown | | + + + + + Care Team Providers + +------+ + | Care Rail Operator Name | Role | Phone | [...] DR [address] [place], | [place] [address] | | | | | [place] [address] | [phone] | | | | | [phone] | | | +--------+--------+ + + + [...] [place] | | | | | | [address] | | | | | | | [...]
--- OUTSIDE RECORDS SUMMARY | ~2017-06-03 | XMS | Encounter Summary ---
Demographics + + + | Address | [address] | | | [place] [address] | + + + | Home Phone | | + + + | Preferred Language | Unknown | + + + | Marital Status | | + + + | Sikh Affiliation | Unknown | + + + [...] | | | | | [place] [address] | | + + + + + | Josie Sparks | ECON | Unknown | | + + + + + Care Team Providers + +------+ + | Care Milk Truck Driver Name | Role | Phone | + [...] [address] | | | | | [place] [address] | | | | | | [phone] | | | +--------+--------+ + + + [...] [place] | | | | | | [address] | | | | | | | [...]
--- OUTSIDE RECORDS SUMMARY | ~2017-06-03 | XMS | Encounter Summary ---
Demographics + + + | Address | [address] | | | [place] [address] | + + + | Home Phone | | + + + | Preferred Language | Unknown | + + + | Marital Status | | + + + | Hinduism Affiliation | Unknown | + + + | Race | Unknown | + + + | Ethnic Group | Unknown | + + + Author + + + | Author | [facility] | | | and Kyeana | + + + | Organization | [facility] | | | [...] | | | | | [place] [address] | | + + + + + | Josie Sparks | ECON | Unknown | | + + + + + Care Team Providers + +------+ + | Care Nuclear Plant Operator Name | Role | Phone | + +------+ + | Antonio De Leon MD | PCP | | + +------+ + Reason for Visit + + + | Reason | Comments | + + + | Follow-up | | + + + Encounter Details +--------+---------+ + + + | Date | Type | Department | Care Team | Description | +--------+---------+ + + + | 04/17/ | Office | [facility] | French Daly | Neuropathy (Primary | | 2018 | Visit | HOSPITAL NEUROLOGY | [address] | Dx); Right lumbar | | | | CLIN[address] | [address] | radiculitis - | | | | DR [address] [place], | [place] [address] | appears to affect | | | | [place] [address] | [phone] | the right L5 nerve | | | | [phone] | | root; Chronic | | | [...] + | Blood Pressure | 138/88 | 04/17/2017 1623 PST | + + + + | Pulse | 87 | 04/17/2017 1623 PST | + + + + | [...] 04/17/20171622 PST | + + + + in this encounter Progress Notes Malika Frenchgisele Johnson, TEXT TRANSCRIBER - 04/17/2017 1615 PSTFormatting of this note may be different f rom the original. Subjective: Patient ID: Perla Verduzco is a 56 y.o. female. She is here today for a follow up appointment on her headaches, neck and back pain. She is reporting moderate pain 6/10 on the pain scal e and requests a Toradol shot on arrival. I started her on Soma when I saw her in February ecause she was getting no relief from the Tizanidine or Flexeril and the Robaxin had already proved ineffective and she itched when she took Baclofen. I did refer her for PT and she i s taking an anti-inflammatory medication. She is having some difficulty with some neuropath ic symptoms in her lower extremities and she has been taking Gabapentin prescribed by her PC P for quite some time. She is up to 1800 mg daily but she is describing some left dropfoot type symptoms on occasion, so I will have her walk for me and we will evaluate her today. S he says it isn't all the time, but some of the time, she just trips for no reason. I can in crease her dose by 100 mg every 7 days and over the next six weeks she can evaluate how it i s working. She will be seeing her PCP and if it helps, he can increase her other dose by on e pill a day. Patient's medications, allergies, past medical, surgical, social and family histories were obtained and reviewed as appropriate. Review of Systems Respiratory: Asthma Cardiovascular: Hypertension Gastrointestinal: GERD Musculoskeletal: Positive for back pain and neck pain. Neurological: Positive for headaches. Migraine without aura, CTS Objective: Vitals: 04/17/17 1623 BP: 138/88 Pulse: 87 Resp: 18 PainSc: 6 PainLoc: Back Physical Exam : General Well [...] release signs absent Gait and Station Normal - walks on heels and toes without difficulty No shuffling Arm swing normal Tandem gait intact Turning not impaired Coordination Finger to nose normal MiscellaneousComplains of moderate tenderness in the back and neck 6/10 on the pain scale Assessment: 1. Right lumbar radiculitis - appears to affect the right L5 nerve root - ketorolac (TORADOL) injection 60 mg; Inject 2 mLs into the muscle once. 2. Chronic bilateral low back pain without sciatica - ketorolac (TORADOL) injection 60 mg; Inject 2 mLs into the muscle once. - carisoprodol (SOMA) 350 mg tablet; Take 1 tablet by mouth 3 times daily as needed for Mus miranda spasms for up to 28 days. Dispense: 84 tablet; Refill: 0 3. Migraine without aura and without status migrainosus, not intractable 4. Strain of thoracic region, subsequent encounter 5. Strain of neck muscle, subsequent encounter - carisoprodol (SOMA) 350 mg tablet; Take 1 tablet by mouth 3 times daily as needed for Mus miranda spasms for up to 28 days. Dispense: 84 tablet; Refill: 0 6. Chronic pain syndrome 7. Neuropathy (HCC) - gabapentin (NEURONTIN) 100 mg capsule; Take 3 capsules by mouth 2 times daily. Increase c urrent dose slowly by 100 mg every 7 days until taking a total of 2400 mg daily Dispense: 1 80 capsule; Refill: 1 Plan: Increase Gabapentin slowly to 2400 mg daily; continue other medications as prescribed. Follow up with PCP as indicated. Toradol 60 mg IM today. Sana Guidry CC COSMETICS MACHINE OPERATOR - 04/17/2017 1615 PSTToradol injection given right glute, no adv erse reactions noted, per pt has had medication before. Electronically signed by: AYAN Joshi [facility] 04/17/2017 16:33 in this encounter Plan of Treatment +--------+---------+ + + + | Date | Type | Specialty | Care Team | Description | +--------+---------+ + + + | 09/02/ | Office | Neurology | Max Dalton MD | | | 2017 | Visit | | [address] | | | | | | [place] | | | | | | [id number] | | | | | | | | +--------+---------+ + + + as of this encounter Visit Diagnoses + + | Diagnosis | + + | Neuropathy - Primary | + + | Mononeuritis of unspecified site | + + | Right lumbar radiculitis - appears to affect the right L5 nerve root | + + | Thoracic or lumbosacral neuritis or radiculitis, unspecified | + + | Chronic bilateral low back pain without sciatica | + + | Migraine without aura and without status migrainosus, not intractable | + + | Migraine without aura, without mention of intractable migraine without mention of | | status migrainosus | + + | Strain of thoracic region, subsequent encounter | + + | Strain of neck muscle, subsequent encounter | + + | Chronic pain syndrome | + + Administered Medications + +--------+ +-------+------+ + | Medication Order | MAR | Action | Dose | Rate | Site | | | Action | Date | | | | + +--------+ +-------+------+ + | ketorolac (TORADOL) injection | Given | | 60 mg | | Ventrogl | | 60 mg 60 mg, Intramuscular, | | 8 16:32 | | | uteal-Ri | | ONCE, 04/17/17 at 1645, For 1 | | PST | | | ght | | dose | | | | | | + +--------+ +-------+------+ + +---+---+ | | | +---+---+ in this encounter
--- OUTSIDE RECORDS SUMMARY | ~2017-06-03 | XMS | Clinical Summary ---
Demographics + + + | Address | [address] | | | [place] [address] | + + + | Home Phone | | + + + | Preferred Language | Unknown | + + + | Marital Status | | + + + | Zoroastrian Affiliation | Unknown | + + + | Race | White | + + + | Ethnic Group | Not or | + + + Author + + + | Author | [facility] | + + + | Organization | [facility] | + + + | Address | Unknown | + + + | Phone | Unavailable | + + + Support + + +---------+ + | Name | Relationship | Address | Phone | + + +---------+ + | James Verduzco | ECON | Unknown | | + + +---------+ + | Aiden Verduzco | ECON | Unknown | | + + +---------+ + Care Team Providers + +------+ + | Care Custom Bow Maker Name | Role | Phone | + +------+ + | Antonio De Leon MD | PP | | + +------+ + Source Comments MARISEL is fully live on both [facility] and [facility] Allergies + + + + + + | Active Allergy | Reactions | Severity | Noted | Comments | | | | | Date | | + + + + + + | Clarithromycin | Anaphylaxis | High | 02/02/20 | | | | | | 17 | | + + + + + + | Codeine | Rash | Low | 01/16/20 | | | | | | 12 | | + + + + + + | Morphine | Rash | Low | 01/16/20 | | | | | | 12 | | + + + + + + | Povidone-Iodine | Rash | | 01/16/20 | | | | | | 12 | | + + + + + + Current Medications No known medications Active Problems Not on file Social History + +-------+ +--------+------+ | Tobacco Use | Types | Packs/Day | Years | Date | | | | | Used | | + +-------+ +--------+------+ | Never Assessed | | | | | + +-------+ +--------+------+ + + + | Sex Assigned at | Date Recorded | | | | + + + | Not on file | | + + + Last Filed Vital Signs + + + + | Vital Sign | Reading | Time Taken | + + + + | Blood Pressure | 146/96 | 02/01/2017 4:31 PM PST | + + + + | Pulse | 88 | 02/01/2017 4:31 PM PST | + + + + | Temperature | - | - | + + + + | Respiratory Rate | - | - | + + + + | Oxygen Saturation | - | - | + + + + | Inhaled Oxygen | - | - | | Concentration | | | + + + + | Weight | 54.4 kg (120 lb) | 02/01/2017 4:31 PM PST | + + + + | Height | 166.4 cm (5' 5.5") | 02/01/2017 4:31 PM PST | + + + + | Body Mass Index | 19.67 | 02/01/2017 4:31 PM PST | + + + + Plan of Treatment + + + + + | Health Maintenance | Due Date | Last Done | Comments | + + + + + | INFLUENZA VACCINE | | | | | (FLU SHOT) | 8 | | | + + + + + Results Not on filefrom Last 3 Months
--- OUTSIDE RECORDS SUMMARY | ~2017-06-03 | XMS | Encounter Summary ---
Demographics + + + | Address | [address] | | | [place] [address] | + + + | Home Phone | | + + + | Preferred Language | Unknown | + + + | Marital Status | | + + + | Synagogue Affiliation | Unknown | + + + | Race | Unknown | + + + | Ethnic Group | Unknown | + + + Author + + + | Author | [facility] | | | and [place]yeana | + + + | Organization | [facility] | | | [...] | | | | | [place] [address] | | + + + + + | Josie Sparks | ECON | Unknown | | + + + + + Care Team Providers + +------+ + | Care Swine Nutritionist Name | Role | Phone | + [...] Description | +--------+--------+ + + + | 04/09/ | Refill | [facility] | [place]aly | Medication Refill | | 2017 | | [facility] | [address] | (refill request) | | | | CLIN[facility] [address] | [facility] [address] E[address] | | | | | DR ARACELIS GATICA, | [place] [address] | | | | | [place] [address] | [phone] | | | | | [phone] | | | +--------+--------+ + + + [...] G[place]ICA | | | | | | [id number] | | | | | | | [...]
--- OUTSIDE RECORDS SUMMARY | ~2017-06-03 | XMS | Encounter Summary ---
Demographics + + + | Address | [address] | | | [place] [address] | + + + | Home Phone | | + + + | Preferred Language | Unknown | + + + | Marital Status | | + + + | Scientologist Affiliation | Unknown | + + + | Race | Unknown | + + + | Ethnic Group | Unknown | + + + Author + + + | Author | [facility] | | | and Kyeana | + + + | Organization | [facility] | | | [...] | | | | | [place] [address] | | + + + + + | Josie Sparks | ECON | Unknown | | + + + + + Care Team Providers + +------+ + | Care Layout Mechanic Name | Role | Phone | [...] | | | | low back | [facility] [address] [address] | [place]APY - [place] | | | | | pain without | [address] | [place] [address] | | | | | sciatica | [address] [place] | | | | | Strain of | [place], | [place], [place] | | | | | neck muscle, | [place] [address] | [address] | | | | | subsequent | Phone: | Phone: | | | | | encounter | [phone] | [phone] | | | | | Procedures | Fax: | Fax: | | | | | EVAL AND | [phone] | [phone] | | | | | TREAT | [...] DR ARACELIS GATICA, | [place] [address] | (Primary Dx); Right | | | | [place] [address] | [phone] | lumbar radiculitis - | | | | [phone] | | appears to affect | | [...] therapy for neck and back pain, in [place] if possible. in this encounter Plan of [...] [place] | | | | | | [address] | | | | | | | [...]
--- OUTSIDE RECORDS SUMMARY | ~2017-06-03 | XMS | Encounter Summary ---
Demographics + + + | Address | [address] | | | [place] [address] | + + + | Home Phone | | + + + | Preferred Language | Unknown | + + + | Marital Status | | + + + | Gnosticism Affiliation | Unknown | + + + | Race | Unknown | + + + | Ethnic Group | Unknown | + + + Author + + + | Author | [facility] | | | and [place]yeana | + + + | Organization | [facility] | [...] | | | | | [place] [address] | | + + + + + | Josie Sparks | ECON | Unknown | | + + + + + Care Team Providers + +------+ + | Care Mail Clerk Bills Name | Role | Phone | + [...] [address] | | | | | [place] [address] | | | | | | [phone] | | | +--------+ + + + [...] [place] | | | | | | [phone] | | | | | | | | +--------+---------+ + + + as of this encounter Visit Diagnoses Not on filein this encounter"
[~2017-06-03 18:21] MED LIST changes: +AMLODIPINE BESYL5 MG PO; +BUSPIRONE HCL5 GM MC; +BUSPIRONE HCL5 MG PO; +DILAUDID2 MG PO; +DOXYCYCLINE MO100 MG PO; +FLUTICASONE PRO16 GM NAS; +GABAPENTIN600 MG PO; +MONDOXYNE NL100 MG PO; +RIZATRIPTAN10 M1 PO; +VENLAFAXINE HC150 MG PO
[2017-06-03] MEDS ORDERED: BUSPIRONE HCL10 MG PO (18:30)
[2017-06-03] MEDS ORDERED: OXYCODONE HCL15 MG PO (18:33)
[2017-06-03] MEDS ORDERED: CARISOPRODOL350 MG PO (18:33)
[2017-06-03] MEDS ORDERED: SPIRONOLACTONE25 MG PO (18:34)
--- NOTE | 2017-06-04 09:22 | HP ---
[facility] [address], [place] [address] Signed ADMISSION DATE: 06/03/2017 REASON FOR ADMISSION: Left upper arm cellulitis and left axillary lymphadenitis and probable abscess. HISTORY: This 56-year-old white woman was accompanied by her sister, Jacqueline. She is from [facility]. Notably, she is the sister of one of my high school classmates, Costa Huggins. The patient presented to the emergency room, and was evaluated by Dr. Phelan on Saturday (today is Saturday) with erythema, and swelling of the left axilla. She tells me that needle aspiration was undertaken showing no sign of purulence. The patient herself manipulated the wound subsequently, and allowed for egress of purulent material. The patient was placed on doxycycline antibiotic, and Gram stain has been obtained, and reviewed showed showing gram-positive cocci. She notes that the antibiotic was of no help. The patient called the office today apparently, at the direction of Dr. Phelan to organize for a followup. The patient has had no fever or chills, but increasing pain in the axilla, and left upper arm. Erythema of the arm distal to the axilla has been notably developing since evaluation in the emergency room. Of note, I was not called about this patient during the weekend, though I was on-call for the weekend. The patient has a history of MRSA infection of the right index finger, which she believes she acquired in the hospital in [facility] in the past year. 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 Trujillo, and also Dr. Al in the past. Her other medical issues include reflux disease, perpetual smoking, and depression. She denies any manic depressive illness. MEDICATIONS: Include, 1. Prevacid. 2. Effexor. 3. Buspirone. 4. Lisinopril. 5. Amlodipine. 6. Spironolactone. 7. Singulair. 8. Zyrtec. Electronically Signed By: CRYS WHITING MD 06/04/17 0922 PATIENT NAME: CHAI DONATO HISTORY AND PHYSICAL DATE OF : 64 REPORT #: [id number] PHYSICIAN: CRYS WHITING MD PCP: ALDO GOULD MD REPORT IS CONFIDENTIAL AND NOT TO BE RELEASED WITHOUT AUTHORIZATION [facility] [address] [place] [address] Signed 9. Clonidine. 10. Lovastatin. 11. Vitamin C. 12. Magnesium supplement. ALLERGIES: She has allergies to iodine, morphine, codeine and Biaxin. SOCIAL HISTORY: She does smoke one pack of cigarettes a day. Does not drink alcohol. She is considered "disabled" living in [place], [place]. Her works in [place], [place] in the [employer]. She is accompanied by her sister it is noted. REVIEW OF SYSTEMS: She denies any chest pain or shortness of breath. Has had no hematemesis, blood per rectum, nausea, or vomiting. She has had no fever or chills. PHYSICAL EXAMINATION: GENERAL: A thin woman who is extremely vocal in her intentions, and perspectives on things. She looks chronically ill, and far older than age 56. The blood pressure is 170/100, pulse 80, temperature 97. Weight 120 pounds, height 5 feet 5 inches. NECK: Shows no thyromegaly, or cervical adenopathy. There is no tracheal deviation. She has no carotid bruit. CHEST: Shows diminished breath sounds bilaterally. There is no wheeze. HEART: Regular. ABDOMEN: Flat and soft. There is no ascites, tenderness, or mass. EXTREMITIES: Show no clubbing, cyanosis, or edema. Examination of the left axilla shows what appears to be adenopathy, but purulence as well, and local tenderness. There is erythema in the proximal left arm, a cellulitic change. In the distal axilla, there is a soft tissue mass that is suggestive of abscess, or even adenopathy with adenitis. ASSESSMENT AND PLAN: She clearly has lymphadenitis at minimum, and secondary cellulitis of the left upper arm. Doxycycline has been ineffective in arresting this. She has photos from her evaluation three days ago, and clearly there has been progression of the problem. I took photo for our record as well. I recommended direct admission to the hospital, IV antibiotics to include vancomycin intravenously administered. Her usual medications will be initiated in due course and a smoking cessation plan including nicotine patch initiated as well. She likely will require incision and drainage of this process. We will allow for arm elevation on the left and heat to be applied to the area as well. Re-evaluation tomorrow will determine Electronically Signed By: CRYS WHITING MD 06/04/17 0922 PATIENT NAME: CHAI DONATO HISTORY AND PHYSICAL DATE OF : 64 REPORT #: [id number] PHYSICIAN: CRYS WHITING MD PCP: ALDO GOULD MD REPORT IS CONFIDENTIAL AND NOT TO BE RELEASED WITHOUT AUTHORIZATION [address] [address] Signed the best course of action as regards drainage, or other surgical intervention. The patient is resistant to these suggestions initially insisting that I "place a port" and have her take care of it at home in [place]. That is not going to happen. I believe since the Gram stain showed gram-positive cocci that most appropriate antibiotic would be vancomycin in this situation, particularly considering she has had MRSA infection in the past. The risks of bleeding, infection, cosmetic deformity, need for complex wound care, and so forth were all reviewed with the patient and her sister who understand fully. MD NIELS Barnhart/VALDEMARL /[id number] cc: MD Jamaal Cano MD Copies: ALDO GOULD MD, MICHAEL MD ~ Electronically Signed By: CRYS WHITING MD 06/04/17 0922 PATIENT NAME: CHAI DONATO HISTORY AND PHYSICAL DATE OF : 64 REPORT #: [id number] PHYSICIAN: CRYS WHITING MD PCP: ALDO GOULD MD REPORT IS CONFIDENTIAL AND NOT TO BE RELEASED WITHOUT AUTHORIZATION
[2017-06-04] MEDS ORDERED: MIRALAX17 GM PO (11:01)
[2017-06-04] MEDS ORDERED: LISINOPRIL20 MG PO (11:04)
[2017-06-04] MEDS ORDERED: ZOFRAN ODT4 MG PO (11:04)
[2017-06-04] MEDS ORDERED: AZELASTINE205.5 MCG/ NAS (11:05)
[2017-06-04] MEDS ORDERED: MONTELUKAST SOD10 MG PO (11:05)
[2017-06-04] MEDS ORDERED: VITAMIN B-121000 MC2 SL (11:06)
[2017-06-04] MEDS ORDERED: MAGOX 400400 MG PO (11:06)
[2017-06-04] MEDS ORDERED: VITAMIN D5000 UNIT PO (11:07)
[2017-06-04] MEDS ORDERED: IRON325 M1 PO (11:07)
[2017-06-04] MEDS ORDERED: CALCIUM CARBON600 MG PO (11:08)
[2017-06-04] MEDS ORDERED: VITAMIN C500 M1 PO (11:09)
[2017-06-05] MEDS ORDERED: HIBICLENS118 ML TOP (09:37)
[2017-06-05] MEDS ORDERED: HYDROMORPHONE HC4 MG PO (09:38)
[2017-06-05] MEDS ORDERED: BACTRIM DS TAB1 EACH PO (09:38)
[2017-06-05] MEDS ORDERED: MOTRIN IB200 MG PO (09:49)
--- NOTE | 2017-06-06 08:59 | OR ---
[facility] [address] [place], [place] [address] Signed DATE OF OPERATION: 06/04/2017 SURGEON: Crys Whiting MD PREOPERATIVE DIAGNOSIS: Suppurative left axillary lymphadenitis with abscess. POSTOPERATIVE DIAGNOSIS: Suppurative left axillary lymphadenitis with abscess. PROCEDURES: 1. Exam under anesthesia. 2. Incision, drainage, and debridement of suppurative left axillary lymphadenitis. 3. Drainage of confluent abscesses of left axilla. 4. Placement of yellow vessel loop drains x3. ANESTHESIA: General endotracheal; Madelaine Bowen CRNA. INDICATION: This 56-year-old white woman is a patient of Dr. Aldo De Leon in [place], [place] and has numerous medical problems including distant history of MRSA infection of the right index finger. For the past 2 weeks or so, she has had increasing swelling and pain in the left axilla. She presented to the emergency room at [facility] over the weekend (Saturday, today is Saturday), where she was evaluated by Dr. Jamaal Phelan and noted to have suppurative left axillary lymphadenitis. A needle penetration of an area of suggestive of abscess did not deliver purulence necessarily, though she did have some egress of purulent material ultimately and a Gram-stain was obtained showing Gram-positive cocci. She was managed as an outpatient with doxycycline and presented to my office yesterday on an urgent basis with increasing erythema of her left arm and some edema as well as extreme pain to the left axillary area. Clinical examination showed suppurative lymphadenitis of the left axilla as well as cellulitis of the arm. She was admitted directly from my office for intravenous antibiotic therapy, which included vancomycin. Heat was applied to the axilla as was left arm elevation. She had marked improvement, though she remains with purulent pock-marked lymph nodes of the left axilla. She is at this time to undergo exam under anesthesia, incision, drainage, debridement, or excision of the lymphadenitis tissue. She understands as does her sister, who accompanies her the risks of bleeding, infection, need for additional treatment, failure to cure the problem, and worsening of her symptoms. Understands that she wished to proceed. Electronically Signed By: CRYS WHITING MD 06/06/17 0859 PATIENT NAME: CHAI DONATO OPERATIVE REPORT DATE OF : 64 REPORT #: [id number] PHYSICIAN: CRYS WHITING MD PCP: ALDO DE LEON MD REPORT IS CONFIDENTIAL AND NOT TO BE RELEASED WITHOUT AUTHORIZATION [facility] [address] [place], [place] [address] Signed FINDINGS: As noted, the edema of the left upper arm had markedly improved since vancomycin was initiated. They remained suppurative purulent lymph nodes of the left axilla, mostly superficial, certainly none deep. Incisions and counter incisions were made in a radial configuration allowing for breakdown of loculations and trabeculations both with in and outside of the infected lymph node tissue. Confluent abscess was noted as well. Gram-stain and cultures were obtained. With debridement and breakdown of loculations and irrigation and drainage, 3 separate yellow vessel loops were used to provide ongoing drainage. Marked improvement of her situation is noted postprocedure. DESCRIPTION OF PROCEDURE: The patient was brought to the operating room, given a general endotracheal anesthetic. She has been on vancomycin intravenously administered. The left axilla was photographed and then prepared with a chlorhexidine solution and draped sterilely. The central portion of the most dominant lymphadenitis was incised in an axial direction via continuation of a hemostat, purulent material was noted. This was Gram-stain and cultured. Breakdown of loculations and trabeculations within lymph node and on the outside lymph nodes was undertaken allowing for counter incision more medially, where another purulent collection was noted. This allowed for delivery of the yellow vessel loop. Distally, similar dissection was undertaken again showing purulent material and probably necrotic lymph tissue as well as other debris. There was no sign of foreign body as noted. Ultimately, 3 yellow vessel loops were placed and breakdown of the loculations and drainage of purulent cavity was undertaken. Photographs were taken throughout the procedure. Irrigation was undertaken with bulb syringe for complete clearance of the areas. A plain gauze and an ABD pad was then applied. She was ultimately extubated and transferred to recovery room in good condition. BLOOD LOSS: Minimal. COMPLICATIONS: None. The operation was prolonged, complicated, and difficult on the basis of extent of the inflammatory and infectious process. Crys Whiting MD Electronically Signed By: CRYS WHITING MD 06/06/17 0859 PATIENT NAME: CHAI DONATO OPERATIVE REPORT DATE OF : 64 REPORT #: [id number] PHYSICIAN: CRYS WHITING MD PCP: ALDO DE LEON MD REPORT IS CONFIDENTIAL AND NOT TO BE RELEASED WITHOUT AUTHORIZATION [address] [address] Signed /VALDEMAR /[id number] cc: MD Aldo Gorman MD Copies: JAMAAL PHELAN MD, BRYAN MD ~ Electronically Signed By: CRYS WHITING MD 06/06/17 0859 PATIENT NAME: CHAI DONATO OPERATIVE REPORT DATE OF : 64 REPORT #: [id number] PHYSICIAN: CRYS WHITING MD PCP: ALDO DE LEON MD REPORT IS CONFIDENTIAL AND NOT TO BE RELEASED WITHOUT AUTHORIZATION
--- NOTE | 2017-06-06 10:44 | DS ---
[facility] [address] [place], [place] [address] Signed ADMISSION DATE: 06/03/2017 DISCHARGE DATE: 06/05/2017 REASON FOR ADMISSION: This 56-year-old white woman from [place], [place] presented to the emergency room on June 01, [address] Phelan for pustular changes and left axillary adenopathy (suppurative lymphadenitis) and was treated with fine needle aspiration biopsy for gram-stain and culture and initiated on antibiotics, doxycycline. She had worsening symptoms and I saw her in the office on a walk-in urgent basis where she was found to have cellulitic changes of the upper left arm and suppurative lymphadenitis on the left axilla. She was admitted for further evaluation and care. PAST MEDICAL HISTORY: Her past medical history does include MRSA infection related to avascular necrosis in the region of the knee bilaterally, treated by Dr. Al with joint replacement therapy in the past. She has other medical issues, but non-diabetes. SOCIAL HISTORY: The patient does smoke on a daily basis. PERTINENT PHYSICAL EXAMINATION: GENERAL: Relatively thin white woman who does not look systemically toxic. CHEST: Clear. HEART: Regular without murmur. EXTREMITIES: Left arm shows edema in the upper left arm and suppurative changes of enlarged lymph nodes of the left axilla, marked and exquisite tenderness and cellulitic changes of the left upper arm distal to the axillary suppuration. LABORATORY DATA: Her white count at admission was 9.7, hematocrit 37.9, platelets 391,000. Chemistry profile is normal except for sodium of 130. Creatinine is normal at 0.53. HOSPITAL COURSE: She was admitted and discontinued on oral doxycycline and initiated rather on intravenous vancomycin. Left arm elevation and warm compressor was applied as well. She had marked improvement with these measures. On June 04, 2017, she underwent general anesthesia and operative drainage and debridement of the axilla where purulent material was drained and suppurative lymph nodes were broken down. Counter incisions were made and yellow vessel loop drains were placed as well after copious irrigation. She has maintained on vancomycin overnight and found to be much improved the next day. By the time of discharge, she is doing quite well. She has no signs of systemic Electronically Signed By: CRYS WHITING MD 06/06/17 1044 PATIENT NAME: CHAI DONATO DISCHARGE SUMMARY DATE OF : 64 REPORT #: [id number] PHYSICIAN: CRYS WHITING MD PCP: ALDO GOULD MD REPORT IS CONFIDENTIAL AND NOT TO BE RELEASED WITHOUT AUTHORIZATION [facility] [address] [place], [place] [address] Signed toxicity. Improvement of her arm although she has sore in the axilla as expected. She will be transitioned to Bactrim DS one tab p.o. b.i.d. for 10 days for discharge. Cultures from the June 01, 2017 from the ER performed under the direction of Dr. Phelan showed Staph aureus, not signs of MRSA though the culture sensitivities are still pending unfortunately. She was empirically treated with Bactrim, pending more information on those cultures and those taken at operation on June 04, 2017. Additionally, cultures were obtained of her right naris to assess for MRSA. We will await those results. She will be discharged to home and instructed to change her dressing on the left axilla on daily basis as well as p.r.n. and to shower daily with Hibiclens soap. She will see us back in the office in 2-3 weeks for removal of the drains. If she has other problems in the meantime, she will let us know. We may modify her antibiotic therapy depending on cultures and sensitivities which are still pending. DISCHARGE DIAGNOSES: 1. Suppurative left axillary adenitis with secondary cellulitic changes. 2. Initial cultures, Staph aureus (not MRSA). 3. Distant history of MRSA infection related to right finger infection greater than one year ago. 4. History of avascular necrosis of distal femur, status post knee replacement bilaterally (Dr. Dmitriy Al). 5. Hypertension. 6. Reflux disease. ALLERGIES: To DSS, morphine, codeine, povidone iodine, clarithromycin, and some sensitivity to chlorhexidine. DISCHARGE MEDICATIONS: 1. Dilaudid 4 mg tablet, 4-8 mg p.o. q.4 hours as needed for pain, #10. 2. Hibiclens solution to shower daily. 3. Bactrim DS one tab p.o. b.i.d. #20. 4. She will continue her usual home medications which include lansoprazole 30 mg daily. 5. Acetaminophen and caffeine one tablet every 6 hours as needed for headaches. 6. Clonidine 0.3 mg tablets p.o. at bedtime. 7. Carafate 1 g q.i.d. on empty stomach. 8. Lovastatin 20 mg p.o. at bedtime. 9. Fluticasone. 10. Advair inhaler one puff b.i.d. Electronically Signed By: CRYS WHITING MD 06/06/17 1044 PATIENT NAME: CHAI DONATO DISCHARGE SUMMARY DATE OF : 64 REPORT #: [id number] PHYSICIAN: CRYS WHITING MD PCP: ALDO GOULD MD REPORT IS CONFIDENTIAL AND NOT TO BE RELEASED WITHOUT AUTHORIZATION [facility] [address] [place], [place] [address] Signed 11. Diclofenac 75 mg p.o. t.i.d. as needed for joint pain. 12. Fluticasone nasal as needed. 13. Venlafaxine 150 mg tablet b.i.d. 14. Gabapentin 600 mg p.o. q.i.d. 15. Rizatriptan 1 tab p.o. as needed for migraine. 16. Buspirone 10 mg p.o. b.i.d. 17. Carisoprodol 350 mg 1 tab p.o. t.i.d. 18. Oxycodone 15 mg tablets p.o. q.i.d. as needed for pain. 19. Spironolactone 25 mg p.o. daily. 20. MiraLAX 17 g powder pack p.o. daily. 21. Lisinopril 20 mg p.o. b.i.d. 22. Zofran 4 mg p.o. as needed for nausea. 23. Azelastine 2 sprays each nostril daily. 24. Montelukast sodium 10 mg p.o. daily. 25. Vitamin B12 1000 mg sublingual daily. 26. Magnesium oxide 400 mg p.o. daily. 27. Ferrous sulfate 325 mg p.o. daily. 28. Vitamin D 5000 units daily. 29. Calcium carbonate 600 mg 3 tablets p.o. at bedtime. 30. Vitamin C 500 mg p.o. at bedtime. 31. In addition, she will have Motrin 600 mg p.o. q.6 hours instead of diclofenac as needed #90. Crys Whiting MD JM/MODL /[id number] cc: MD Aldo Gorman MD [place] [facility] Copies: BRISA PHELAN MD Electronically Signed By: CRYS WHITING MD 06/06/17 1044 PATIENT NAME: CHAI DONATO DISCHARGE SUMMARY DATE OF : 64 REPORT #: [id number] PHYSICIAN: CRYS WHITING MD PCP: ALDO GOULD MD REPORT IS CONFIDENTIAL AND NOT TO BE RELEASED WITHOUT AUTHORIZATION [facility] [address] [place] [place], [place] [address] Signed ALDO GOULD MD Electronically Signed By: CRYS WHITING MD 06/06/17 1044 PATIENT NAME: CHAI DONATO DISCHARGE SUMMARY DATE OF : 64 REPORT #: [id number] PHYSICIAN: CRYS WHITING MD PCP: ALDO GOULD MD REPORT IS CONFIDENTIAL AND NOT TO BE RELEASED WITHOUT AUTHORIZATION
== END 2017-06-05 12:45 | disposition home or self-care (01) | DRG 803 ==
LOC: MS 18:21
PROVIDERS: ADMIT Surgery
PROC: 079 Lymphatic and Hemic Systems, Drainage (ICD-10-PCS; principal; 2017-06-04 13:00)
PROC: 0X950ZX Drainage of Left Axilla, Open Approach, Diagnostic (ICD-10-PCS; principal; 2017-06-04 13:00)
DX: L04.2 Acute lymphadenitis of upper limb (principal); L03.114 Cellulitis of left upper limb; L02.412 Cutaneous abscess of left axilla; F17.210 Nicotine dependence, cigarettes, uncomplicated; Z71.6 Tobacco abuse counseling; B95.61 Methicillin susceptible Staphylococcus aureus infection as the cause of diseases classified elsewhere
CPT/HCPCS: 00400; 80053; 82247; 82465; 83615; 84100; 84478; 84550; 85025; 87070; 87075; 87077; 87186; 87205; 99406; J1170; J1885; J2405; J3010; J3370; J7050; J7120; Q0163